=== PATIENT | female | born 1950 | race Hispanic/Latino ===

== ENCOUNTER 2017-05-26 10:01 | Inpatient (IN) | payer MEDICAID ==
[2017-05-26 10:06] VITALS: BMI 44.0
[2017-05-26] MEDS ORDERED: Sodium Chloride 0.9% 500 ML IV STA (10:52)
--- NOTE | 2017-05-26 11:05 | ED PDOC ---
HPI: Abdomen Time Seen by Provider: 05/26/17 10:20 Chief Complaint (Nursing): Abdominal Pain Chief Complaint (Provider): Abd pain History Per: Patient History/Exam Limitations: no limitations Onset/Duration Of Symptoms: Days (sat) Outside of [place] travel?: No Current Symptoms Are (Timing): Still Present Additional Complaint(s): Pt. with abd pain across lower. Started Sat. She also had vaginal bleeding that stopped on Tuesday as well. Abd pain continues today as well so she came to the Er. Pt. gets vaginal bleeding that lasts 3-4 days every month. Had a scraping of uterus in 2014 and stopped vaginal bleeding, but now it is has been back for a while, monthly. Pt. also with nausea, no vomit. No diarrhea. No new food or drinks. No dyspnea, weakness, headaches, dizziness. Gets seizures and takes meds for it (phenobarb and dilantin). No dysuria. Is on oxygen 24hrs a day. Under stress lately from her son dying yesterday, in August. Also gets bad anxiety and panic attacks for which she takes xanax and ativan as needed. Past Medical History Reviewed: Nursing Documentation, Vital Signs Vital Signs: Last Vital Signs Temp 97.8 F 05/26/17 10:06 Pulse 89 05/26/17 11:10 Resp 20 05/26/17 11:10 BP 148/100 H 05/26/17 11:10 Pulse Ox 97 05/26/17 13:20 - Medical History PMH: Anxiety, COPD, Migraine, Seizures Other PMH: vaginal bleeding monthly - Surgical History Surgical History: Appendectomy, Cholecystectomy Other surgeries: uterine scraping - Family History Family History: States: Unknown Family Hx - Social History Current smoker - smoking cessation education provided: No Alcohol: None Drugs: Denies - Home Medications Home Medications: Ambulatory Orders Medication Instructions Recorded Albuterol HFA [Ventolin HFA 90 2 puff IH Q6 PRN 05/26/17 mcg/actuation (8 g)] Albuterol/Ipratropium [Duoneb 3 3 ml IH Q8 PRN 05/26/17 mg/0.5 mg (3 ml) UD] Benzonatate [Tessalon Perle] 200 mg PO Q8 PRN 05/26/17 Digoxin [Lanoxin] 250 mcg PO DAILY 05/26/17 Famotidine [Pepcid] 20 mg PO DAILY PRN 05/26/17 Fluticasone/Salmeterol 500/50 1 puff IH Q12 05/26/17 [Advair Diskus 500/50] LORazepam [Ativan] 1 mg PO Q8 PRN 05/26/17 Naproxen [Naproxen] 375 mg PO Q12 PRN 05/26/17 Omeprazole [Omeprazole] 20 mg PO BID 05/26/17 Ondansetron [Zofran Tab] 4 mg PO DAILY PRN 05/26/17 Phenobarbital [PHENobarbital Tab] 4 tab PO Q12 05/26/17 Phenytoin, Extended [Dilantin] 400 mg PO Q12 05/26/17 SUMAtriptan succinate [Imitrex Tab] 100 mg PO DAILY PRN 05/26/17 Tiotropium [Spiriva] 18 mcg IH DAILY 05/26/17 Venlafaxine HCl [Venlafaxine HCl] 75 mg PO DAILY 05/26/17 oxyCODONE/Acetaminophen [Percocet 1 tab PO Q6 PRN 05/26/17 5/325 mg Tab] - Allergies Allergies/Adverse Reactions: Allergies Allergy/AdvReac Type Severity Reaction Status Date / Time No Known Allergies Allergy Verified 05/26/17 10:14 Review of Systems ROS Statement: Except As Marked, All Systems Reviewed And Found Negative Gastrointestinal: Positive for: Nausea, Abdominal Pain Genitourinary Female: Positive for: Vaginal Bleeding Physical Exam - Reviewed Nursing Documentation Reviewed: Yes Vital Signs Reviewed: Yes - Physical Exam Appears: Positive for: Non-toxic, No Acute Distress Head Exam: Positive for: ATRAUMATIC, NORMAL INSPECTION, NORMOCEPHALIC Skin: Positive for: Normal Color, Warm, DRY Eye Exam: Positive for: EOMI, Normal appearance, PERRL ENT: Positive for: Normal ENT Inspection Neck: Positive for: Normal, Painless ROM, Supple Cardiovascular/Chest: Positive for: Regular Rate, Rhythm Respiratory: Positive for: Decreased Breath Sounds. Negative for: Accessory Muscle Use Gastrointestinal/Abdominal: Positive for: Soft, Tenderness (across lower) Back: Positive for: Normal Inspection. Negative for: L CVA Tenderness, R CVA Tenderness Extremity: Positive for: Normal ROM. Negative for: Tenderness, Pedal Edema Neurologic/Psych: Positive for: Alert, net trainer II-XII, Oriented. Negative for: Motor/Sensory Deficits - Laboratory Results Result Diagrams: 05/26/17 11:00 05/26/17 11:00 Interpretation Of Abn Labs: urine wbc - ECG ECG: Positive for: Interpreted By Me, Viewed By Me ECG Rhythm: Positive for: Normal QRS, Sinus Rhythm, Nonspecific Changes O2 Sat by Pulse Oximetry: 97 Pulse Ox Interpretation: Normal - Radiology X-Ray: Read By Radiologist X-Ray Interpretation: No Acute Disease - CT Scan/US ct Other Rad Studies (CT/US): Read By Radiologist Other Rad Interpretation: no acute - Progress ED Course And Treament: 1107: Stable. Pt. had a seizure for 10 seconds (all extremities shaking). Witnessed by staff writer. Post seizure, pt. had anxiety, but was awake and communicating. 2mg IV ativan given. Daughter at bedside states pt. gets seizures on any stress. Also gets dilaudid for pain. 1320: Stable. AAOx3. Will need admit for pain control and uti tx. Does not meet sepsis criteria. 1400: Spoke with Dr. Velarde. Will admit. Will give orders when pt. reaches floor. Disposition - Clinical Impression Clinical Impression: Abdominal pain, UTI (urinary tract infection), Seizure - Patient ED Disposition Is Patient to be Admitted: Yes Counseled Patient/Family Regarding: Studies Performed, Diagnosis - Disposition Disposition Time: 14:00 Condition: FAIR Forms: [employer] - Pt Status Changed To: Hospital Disposition Of: Observation - POA Present On Arrival: None
[2017-05-26 11:34] LABS: BASO % 0.3 % (0.0-2.0); EOS # 0.2 K/uL (0.0-0.7); EOS % 2.5 % (0.0-4.0); HEMOGLOBIN 15.6 g/dL (12.0-16.0); LYMPH # 2.1 K/uL (1.0-4.3); LYMPH % 21.5 % (20.0-40.0); MEAN CELL VOLUME 85.6 fl (81.0-99.0); MEAN CORPUSCULAR HEMOGLOBIN 29.1 pg (27.0-31.0); MEAN CORPUSCULAR HGB CONC 33.9 g/dL (33.0-37.0); MEAN PLATELET VOLUME 7.8 fl (7.2-11.7); MONO # 0.6 K/uL (0.0-0.8); MONO % 6.3 % (0.0-10.0); NEUT # 6.8 K/uL (1.8-7.0); NEUT % 69.4 % (50.0-75.0); NRBC % 0.1 % (0.0-0.0); RBC 5.36 Mil/uL (3.80-5.20); RED CELL DISTRIBUTION WIDTH 14.2 % (11.5-14.5); WHITE BLOOD COUNT 9.8 K/uL (4.8-10.8)
[2017-05-26 11:37] LABS: SQUAMOUS EPITHIAL 3 /hpf (0-5); URINE BACTERIA OCC (<OCC); URINE BILIRUBIN NEGATIVE (NEGATIVE); URINE BLOOD MODERATE (NEGATIVE); URINE CLARITY CLOUDY (Clear); URINE COLOR YELLOW (YELLOW); URINE GLUCOSE (UA) NEG (Normal); URINE LEUKOCYTE ESTERASE MOD Leu/uL (Negative); URINE PROTEIN NEGATIVE (NEGATIVE); URINE UROBILINOGEN 0.2-1.0 mg/dL (0.2-1.0)
[2017-05-26 11:38] LABS: INR 1.1 (0.9-1.2)
[2017-05-26 11:44] LABS: ALB/GLOB RATIO 1.1 (1.0-2.1); ALBUMIN 4.4 g/dL (3.5-5.0); ALT/SGPT 33 U/L (9-52); AST/SGOT 27 U/L (14-36); BLOOD UREA NITROGEN 13 mg/dl (7-17); GFR AFRICAN-AMERICAN > 60; GFR NON-AFRICAN AMERICAN > 60
[2017-05-26] MEDS ORDERED: Iohexol 300 100 ML IJ ONE (11:55)
[2017-05-26 11:56] LABS: B-TYPE NATRIURETIC PEPTIDE 114 pg/ml (0-900)
[2017-05-26] MEDS ORDERED: Sodium Chloride 0.9% 100 ML ONE (11:56)
--- NOTE | 2017-05-26 12:24 | RAD ---
HISTORY: dyspnea COMPARISON: 01/16/2014 FINDINGS: LUNGS: No active pulmonary disease. PLEURA: No significant pleural effusion identified, no pneumothorax apparent. CARDIOVASCULAR: Normal. OSSEOUS STRUCTURES: No significant abnormalities. VISUALIZED UPPER ABDOMEN: Normal. OTHER FINDINGS: None. IMPRESSION: No active disease.
[2017-05-26] MEDS ORDERED: Ciprofloxacin 400mg/200ml D5W 400 MG/200 ML BAG IV STA (12:42)
[2017-05-26] MEDS ORDERED: Ciprofloxacin 400mg/200ml D5W 400 MG/200 ML BAG IVPB ONE (13:14)
[2017-05-26 13:15] LABS: VENOUS BLOOD GAS BASE EXCESS 0.5 mmol/L (0.0-2.0); VENOUS BLOOD GAS PCO2 52 mmHg (40-60); VENOUS BLOOD GAS PO2 43 mm/Hg (30-55); VENOUS BLOOD PH 7.33 (7.32-7.43)
--- NOTE | 2017-05-26 13:16 | CT ---
PROCEDURE: CT Abdomen and Pelvis with contrast HISTORY: Unspecified abdominal pain COMPARISON: 08/16/2011 CT thorax including upper abdomen TECHNIQUE: Contrast dose: 95 cc Omnipaque 300 Radiation dose: Total exam DLP = 1174.74 mGy-cm. This CT exam was performed using one or more of the following dose reduction techniques: Automated exposure control, adjustment of the mA and/or kV according to patient size, and/or use of iterative reconstruction technique. FINDINGS: LOWER THORAX: Chronic interstitial changes at both bases. Stable hiatal hernia. LIVER: Hepatic steatosis. No focal masses. No intrahepatic bile duct dilatation or perihepatic ascites. GALLBLADDER AND BILE DUCTS: Status post cholecystectomy. No abnormality is seen in the gallbladder fossa. PANCREAS: Unremarkable. No gross lesion or ductal dilatation. SPLEEN: Splenomegaly. Orthogonal measurements 5.8 x 16.6 cm. Accessory splenule also identified. ADRENALS: Unremarkable. No mass. KIDNEYS AND URETERS: Unremarkable. No hydronephrosis. No solid mass. Simple cyst lower pole left kidney 1.2 cm. VASCULATURE: Unremarkable. No aortic aneurysm. BOWEL: Unremarkable. No obstruction. No gross mural thickening. APPENDIX: No abnormalities to suggest acute appendicitis. No right lower quadrant inflammatory processes identified. PERITONEUM: Unremarkable. No free fluid. No free air. LYMPH NODES: Unremarkable. No enlarged lymph nodes. BLADDER: Unremarkable. REPRODUCTIVE: Enlarged, myomatous uterus. BONES: No acute fracture. OTHER FINDINGS: None. IMPRESSION: No acute findings related to/accounting for the clinical presentation. Additional benign and/or incidental findings described above.
[2017-05-26] MEDS ORDERED: Albuterol-Ipratrop 3 mg / 0.5 (3 ml) UD IH PRN (16:32)
[2017-05-26] MEDS ORDERED: Phenytoin 100 mg/4 ml Oral Susp UD PO SCH (17:00)
--- NOTE | 2017-05-26 17:17 | CARD ---
APPROVED REPORT EKG Measurement Heart [id number] IN [id number] <Conclusion> Normal sinus rhythm Normal ECG
[2017-05-26] MEDS: Phenytoin 100 mg/4 ml Oral Susp UD PO SCH (18:38)
[2017-05-26] MEDS: Oxycodone/Acetaminophen 5/325 mg Tab PO PRN (18:42)
[2017-05-26] MEDS: Pantoprazole 40 mg EC Tab PO SCH (18:46)
[2017-05-26] MEDS: Fluticasone-Salmeterol 500-50mcg Diskus IH SCH (21:29)
[2017-05-26] MEDS: Ciprofloxacin 400mg/200ml D5W 400 MG/200 ML BAG IVPB SCH (21:30)
[2017-05-27] MEDS: Oxycodone/Acetaminophen 5/325 mg Tab PO PRN ×2 (00:57→10:02)
[2017-05-27 05:54] LABS: HEMOGLOBIN 13.9 g/dL (12.0-16.0); MEAN CELL VOLUME 86.4 fl (81.0-99.0); MEAN CORPUSCULAR HEMOGLOBIN 29.1 pg (27.0-31.0); MEAN CORPUSCULAR HGB CONC 33.6 g/dL (33.0-37.0); RBC 4.79 Mil/uL (3.80-5.20); RED CELL DISTRIBUTION WIDTH 14.4 % (11.5-14.5); WHITE BLOOD COUNT 6.9 K/uL (4.8-10.8)
[2017-05-27 06:11] LABS: BLOOD UREA NITROGEN 13 mg/dl (7-17); CALCIUM 8.9 mg/dL (8.4-10.2); GFR AFRICAN-AMERICAN > 60; GFR NON-AFRICAN AMERICAN 56
[2017-05-27] MEDS: Phenytoin 100 mg/4 ml Oral Susp UD PO SCH ×2 (09:55→17:27)
[2017-05-27] MEDS: Pantoprazole 40 mg EC Tab PO SCH (09:55)
[2017-05-27] MEDS: Tiotropium 18 mcg Cap For Inhalation IH SCH (09:56)
[2017-05-27] MEDS: Digoxin 250 mcg (0.25 mg) Tab PO SCH (09:56)
[2017-05-27] MEDS: Fluticasone-Salmeterol 500-50mcg Diskus IH SCH ×2 (09:57→21:22)
[2017-05-27] MEDS: Ciprofloxacin 400mg/200ml D5W 400 MG/200 ML BAG IVPB SCH ×2 (09:57→21:22)
--- NOTE | 2017-05-27 11:06 | US ---
HISTORY: postmenopausal bleeding COMPARISON: Transvaginal pelvic ultrasound examination 10/09/2015. TECHNIQUE: Transvaginal pelvic ultrasound was performed with longitudinal and transverse images submitted for interpretation. FINDINGS: UTERUS: Measures 7.6 x 4.4 x 6.5 cm. The uterus is retroverted with multiple fibroids again identified. The dominant lesions are as follows: Pedunculated left fundal fibroid 4.7 x 3.0 x 3.9 cm, stable in the interval. Pedunculated right ovary measuring 2.9 x 2.9 x 2.8 cm not previously data demonstrated, possibly obscured by bowel. Right fundal intramural myoma 2.6 x 2.9 x 2.8 cm, stable in the interval. Left fundal intramural myoma 2.4 x 1.9 x 2.0 cm also unchanged. 1.9 cm intramural left fundal myoma is marginally increased in size in the interval. ENDOMETRIUM: Measures 12.5 mm in diameter. The endometrium is abnormally thickened and remains predominate echogenic without focal definable lesion. Further clinical correlation is recommended. CERVIX: No cervical abnormality identified. RIGHT OVARY: Once again, the right ovary is not identified. No suspicious adnexal mass or fluid collection appreciable. Consider possible right oophorectomy no atrophy is possible. LEFT OVARY: Measures 3.4 x 1.7 x 2.2 cm. No solid mass. A small complex cyst identified with internal debris measuring 1.1 x 0.9 x 1.3 cm. FREE FLUID: No significant free fluid noted. OTHER FINDINGS: None. IMPRESSION: Fibroid uterus again identified with overall measurement of the uterus obtained under transvaginal technique is transabdominal technique was grossly obscured by extensive bowel gas. There is only a marginal difference in increase in size of 1 of the 6 fibroids identified with bilateral pedunculated fibroids appearing the dominant fibroids. Please see measurements and discussion above. Persistent abnormally thickened endometrium now measuring 12.5 mm thickness without focal mass appreciable. Further clinical correlation is advised as underlying pathology is not excluded. Nonvisualized right ovary once again.
--- NOTE | 2017-05-27 11:43 | CP.PCM.PN ---
Subjective - Date & Time of Evaluation Date of Evaluation: 05/27/17 Time of Evaluation: 11:40 - Subjective Subjective: bleeding for past 2 yrs now, pt [facility] pap done and wnl, and mammo and pelvic sono ordered but pt states did not do. She did not return to office for evaluation and poss D/C as advised Pt states continued bleeding on and off from that time Objective - Vital Signs/Intake and Output Vital Signs (last 24 hours): Temp Pulse Resp BP Pulse Ox 97.6 F 79 18 113/80 95 05/27/17 07:46 05/27/17 07:46 05/27/17 07:46 05/27/17 07:46 05/27/17 07:46 Intake and Output: 05/27/17 05/27/17 06:59 18:59 Intake Total 980 Balance 980 - Medications Medications: Current Medications Albuterol/Ipratropium (Duoneb 3 Mg/0.5 Mg (3 Ml) Ud) 3 ml IH RQ8 PRN PRN Reason: Shortness of Breath Digoxin (Lanoxin) 0.25 mg PO DAILY [facility] Last Admin: 05/27/17 09:56 Dose: 0.25 mg Famotidine (Pepcid) 20 mg PO DAILY PRN PRN Reason: Heartburn Last Admin: 05/26/17 18:43 Dose: 20 mg Home Med (Sumatriptan Succinate [Imitrex Tab]) 100 mg PO DAILY PRN PRN Reason: Migraine headache Ciprofloxacin (Cipro 400mg/200ml Dsw) 400 mg in 200 mls @ 200 mls/hr IVPB Q12 DARRIUS PRN Reason: Protocol Last Admin: 05/27/17 09:57 Dose: 200 mls/hr Lorazepam (Ativan) 1 mg PO Q8 PRN PRN Reason: Anxiety Ondansetron HCl (Zofran Tab) 4 mg PO DAILY PRN PRN Reason: Nausea/Vomiting Oxycodone/Acetaminophen (Percocet 5/325 Mg Tab) 1 tab PO Q6 PRN PRN Reason: Pain, severe (8-10) Stop: 05/29/17 16:33 Last Admin: 05/27/17 10:02 Dose: 1 tab Pantoprazole Sodium (Protonix Ec Tab) 40 mg PO DAILY [facility] Last Admin: 05/27/17 09:55 Dose: 40 mg Phenobarbital (Phenobarbital Tab) 60 mg PO DAILY@1300 [facility] Phenobarbital (Phenobarbital Tab) 90 mg PO [facility]HS [facility] Phenytoin (Dilantin) 100 mg PO TID [facility] Last Admin: 05/27/17 09:55 Dose: 100 mg Fluticasone/Salmeterol (Advair Diskus 500/50) 1 puff IH Q12 [facility] Last Admin: 05/27/17 09:57 Dose: 1 puff Tiotropium [place] (Spiriva) 18 mcg IH DAILY [facility] Last Admin: 05/27/17 09:56 Dose: 18 mcg Venlafaxine HCl (Effexor) 75 mg PO DAILY [facility] Last Admin: 05/27/17 09:57 Dose: 75 mg - Labs Labs: 05/27/17 04:29 05/27/17 04:29 PT 12.0 Seconds (9.8-13.1) 05/26/17 11:00 INR 1.1 (0.9-1.2) 05/26/17 11:00 APTT 32.0 Seconds (25.6-37.1) 05/26/17 11:00 - Constitutional Appears: No Acute Distress - Head Exam Head Exam: ATRAUMATIC - Respiratory Exam Respiratory Exam: NORMAL BREATHING PATTERN - GI/Abdominal Exam Additional comments: soft depressible not distended Uterine fundus palpable above sp but NT - Back Exam Additional comments: no calf tenderness - Neurological Exam Neurological Exam: Alert, Awake, Oriented x3 Assessment and Plan - Assessment and Plan (Free Text) Assessment: post menopausal bleeding for past 2 yrs and no apparent follow up Plan: Sono reviewed and showing enlarged uterus with multiple fibroids and a thickened endometrial lining In view of this an endometrial malignancy has to be ruled out Need for D/C discussed with pt Will discussed with PMD and need medical clearence for the procedure Will follow
--- NOTE | 2017-05-27 12:08 | CARD ---
APPROVED REPORT EXAM: Two-dimensional and M-mode echocardiogram with Doppler and color Doppler. Other Information Quality : AverageRhythm : NSR Technically limited study due to copd INDICATION Cardiac Disease: CAD COPD 2D DIMENSIONS IVSd1.21 (0.7-1.1cm)LVDd4.37 (3.9-5.9cm) LVOT Diameter2.43 (1.8-2.4cm)PWd0.88 (0.7-1.1cm) IVSs1.07 (0.8-1.2cm)LVDs4.33 (2.5-4.0cm) FS (%) 0.9 %PWs1.04 (0.8-1.2cm) M-Mode DIMENSIONS Left Atrium (MM)4.17 (2.5-4.0cm)IVSd1.16 (0.7-1.1cm) Aortic Root3.04 (2.2-3.7cm)LVDd4.83 (4.0-5.6cm) Aortic Cusp Exc.1.85 (1.5-2.0cm)PWd1.03 (0.7-1.1cm) IVSs1.36 cmFS (%) 26 % LVDs3.57 (2.0-3.8cm)PWs1.06 cm Mitral Valve MV E Rauywqby64.0cm/sMV DECEL [id number] A Ekbzbqrt11.6cm/s MV [id number]/A ratio1.4MVA (PHT)2.86cm2 TDI Lateral E' Peak V9.70cm/sMedial E' Peak V7.17cm/sE/Lateral E'5.2 E/Medial E'7.0 LEFT VENTRICLE The left ventricle is normal size. There is normal left ventricular wall thickness. The left ventricular function is normal. The left ventricular ejection fraction is within the normal range. The Ejection Fraction is 50-55%. There is normal LV segmental wall motion. The left ventricular diastolic function is normal. RIGHT VENTRICLE The right ventricle is normal size. The right ventricular systolic function is normal. ATRIA The left atrium size is normal. The right atrium size is normal. AORTIC VALVE The aortic valve is normal in structure. No aortic regurgitation is present. There is no aortic valvular stenosis. MITRAL VALVE The mitral valve is normal in structure. There is no mitral valve stenosis. There is no mitral valve regurgitation noted. TRICUSPID VALVE The tricuspid valve is normal in structure. There is no tricuspid valve regurgitation noted. PULMONIC VALVE The pulmonary valve is normal in structure. There is no pulmonic valvular regurgitation. GREAT VESSELS The aortic root is normal in size. The IVC is normal in size and collapses >50% with inspiration. PERICARDIAL EFFUSION The pericardium appears normal. <Conclusion> The left ventricle is normal size. The left ventricular function is normal. The left ventricular ejection fraction is within the normal range. The Ejection Fraction is 50-55%.
--- NOTE | 2017-05-27 13:53 | CP.PCM.HP ---
<Edil Schmitt - Last Filed: 05/27/17 17:54> Meds Home Medications: Home Medication List Medication Instructions Recorded Confirmed Type Ciprofloxacin Lactate 400 mg IV Q12 #4 vial 06/02/17 Rx [Ciprofloxacin] PHENobarbital [PHENobarbital Tab] 60 mg PO DAILY@1300 tab 06/02/17 Rx PHENobarbital [PHENobarbital Tab] 90 mg PO [facility] tab 06/02/17 Rx Allergies/Adverse Reactions: Allergies Allergy/AdvReac Type Severity Reaction Status Date / Time No Known Allergies Allergy Verified 06/02/17 15:39 Results - Vital Signs Recent Vital Signs: Last Vital Signs Temp 98.2 F 05/27/17 15:50 Pulse 75 05/27/17 15:50 Resp 20 05/27/17 15:50 BP 133/91 H 05/27/17 15:50 Pulse Ox 97 05/27/17 15:50 - Labs Result Diagrams: 05/27/17 04:29 05/27/17 04:29 Labs: Laboratory Results - last 24 hr 05/26/17 05/27/17 05/27/17 11:46 04:29 04:29 WBC 6.9 RBC 4.79 Hgb 13.9 Hct 41.4 MCV 86.4 MCH 29.1 MCHC 33.6 RDW 14.4 Plt Count 137 Sodium 144 Potassium 4.1 Chloride 104 Carbon Dioxide 25 Anion Gap 19 BUN 13 Creatinine 1.0 Est GFR ( Amer) > 60 Est GFR (Non-Af Amer) 56 Random Glucose 107 H Calcium 8.9 Phenobarbital 13.6 L <Kana Velarde - Last Filed: 06/04/17 14:24> History of Present Illness - History of Present Illness History of Present Illness: CC: Suprapubic pain. 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 Pain associated to diarrhea/loose stool. Worsening symptoms: Post-menopausal vaginal bleeding x 2 yrs, Hx of seizure Disorder on Dilantin, Phenobarbital ( Pt was witnessed shaking for about 15 seconds as per nurse). Also c/o of severe depression 2nd to loss of her and recent of her son. Aggravated factor: Did not f/u visit with HUMAN RESOURCES PROJECT COORDINATOR since September 2016, after been advices on that date to return to his office for a possible D&C. Morbid Obesity BMI 43.0 Pt denied: Fever, chills, nausea, vomiting, dizziness, CP, palpitation, SOB, cough, sick contact, recent travel out of [place]. EKG: Normal sinus rhythm. CXR: No active disease. Abd/Pelv CT: No acute finding. Abdominal U-S shows: Enlarged uterus with multiple fibroids and thickened endometrial lining. Echo: LVEF 50-55% Present on Admission - Present on Admission Any Indicators Present on Admission: No Review of Systems - Constitutional Constitutional: Other - EENT Eyes: Other (negative) Ears: Decreased Hearing Nose/Mouth/Throat: Other (negative) - Cardiovascular Cardiovascular: Other (negative) - Respiratory Respiratory: Other (negative) - Gastrointestinal Gastrointestinal: Other (negative) - Genitourinary Genitourinary: Other (suprapubic pain) - Reproductive: Female Reproductive:Female: Post Menopausal, Abnormal Vaginal Bleeding, Pelvic Pain - Musculoskeletal Musculoskeletal: Arthralgias, Other (knees pain) - Integumentary Integumentary: Other (negative) - Neurological Neurological: Convulsions - Psychiatric Psychiatric: Anxiety, Depression, Panic Attacks - Endocrine Endocrine: Other (morbid obesity) - Hematologic/Lymphatic Hematologic: Other (negative) Past Patient History - Past Medical History & Family History Past Medical History?: Yes Pertinent Family History: Mother from stomach Ca. - Past Social History Smoking Status: Former Smoker Alcohol: None Drugs: Denies Home Situation {Lives}: Alone - CARDIAC Hx Cardiac Disorders: No - PULMONARY Hx Respiratory Disorders: Yes Hx Chronic Obstructive Pulmonary Disease (COPD): Yes Hx Emphysema: Yes Other/Comment: home o2 - NEUROLOGICAL Hx Neurological Disorder: Yes Hx Migraine: Yes Hx Seizures: Yes - HEENT Hx HEENT Problems: Yes Hx Cataracts: Yes - RENAL Hx Chronic Kidney Disease: No - ENDOCRINE/METABOLIC Hx Endocrine Disorders: No - HEMATOLOGICAL/ONCOLOGICAL Hx Blood Disorders: No - INTEGUMENTARY Hx Dermatological Problems: No - MUSCULOSKELETAL/RHEUMATOLOGICAL Hx Musculoskeletal Disorders: Yes Hx Falls: Yes - GASTROINTESTINAL Hx Gastrointestinal Disorders: Yes Hx Gall Bladder Disease: Yes Hx Irritable Bowel: Yes - GENITOURINARY/GYNECOLOGICAL Hx Genitourinary Disorders: No - PSYCHIATRIC Hx Psychophysiologic Disorder: Yes Hx Anxiety: Yes Hx Depression: Yes Hx Substance Use: No - SURGICAL HISTORY Hx Surgeries: Yes Hx Appendectomy: Yes Hx Cholecystectomy: Yes - ANESTHESIA Hx Anesthesia: Yes Hx Anesthesia Reactions: No Hx Malignant Hyperthermia: No Has any member of the family had a problem w/ anesthesia?: No Physical Exam - Constitutional Appears: Chronically Ill - Head Exam Head Exam: NORMAL INSPECTION - Eye Exam Eye Exam: PERRL - ENT Exam ENT Exam: Normal Exam - Neck Exam Neck exam: Positive for: Normal Inspection - Respiratory Exam Respiratory Exam: Decreased Breath Sounds (at bases) - Cardiovascular Exam Cardiovascular Exam: REGULAR RHYTHM - GI/Abdominal Exam GI & Abdominal Exam: Normal Bowel Sounds, Soft, Tenderness (suprapubic) - Extremities Exam Extremities exam: Positive for: normal inspection - Back Exam Back exam: NORMAL INSPECTION - Neurological Exam Neurological exam: Alert, Oriented x3 - Psychiatric Exam Psychiatric exam: Anxious, Depressed - Skin Skin Exam: Warm Results - Vital Signs Recent Vital Signs: Last Vital Signs Temp 97.8 F 05/27/17 11:49 Pulse 78 05/27/17 11:49 Resp 18 05/27/17 11:49 BP 138/90 05/27/17 11:49 Pulse Ox 93 L 05/27/17 11:49 reviewed J.P. - Labs Result Diagrams: 06/01/17 13:45 06/01/17 13:45 Labs: Laboratory Results - last 24 hr 05/26/17 05/26/17 05/27/17 11:00 11:46 04:29 WBC 6.9 RBC 4.79 Hgb 13.9 Hct 41.4 MCV 86.4 MCH 29.1 MCHC 33.6 RDW 14.4 Plt Count 137 Sodium Potassium Chloride Carbon Dioxide Anion Gap BUN Creatinine Est GFR ( Amer) Est GFR (Non-Af Amer) Random Glucose Calcium Phenytoin 7.6 L Phenobarbital 13.6 L 05/27/17 04:29 WBC RBC Hgb Hct MCV MCH MCHC RDW Plt Count Sodium 144 Potassium 4.1 Chloride 104 Carbon Dioxide 25 Anion Gap 19 BUN 13 Creatinine 1.0 Est GFR ( Amer) > 60 Est GFR (Non-Af Amer) 56 Random Glucose 107 H Calcium 8.9 Phenytoin Phenobarbital reviewed J.P. - EKG Data EKG comments: reviewed J.P. - Impressions Impression: reviewed J.P. - Imaging and Cardiology Chest x-ray Status: Report reviewed by me (JJaceP.) US - abdomen Status: Report reviewed by me (Antonia) CT scan - abdomen Status: Report reviewed by me (Antonia) CT scan - pelvis Status: Report reviewed by me (Antonia) Additional comment: Echo: Reviewed J.P. Transvaginal U-S Reviewed J.P. Assessment & Plan (1) Suprapubic pain, acute Status: Acute Priority: High (2) Post-menopause bleeding Status: Deleted Priority: High (3) UTI (urinary tract infection) Status: Acute Priority: High (4) Seizure Status: Chronic Priority: High (5) COPD (chronic obstructive pulmonary disease) Status: Chronic Priority: Medium - Assessment and Plan (Free Text) Plan: U C-S shows: Grand negative randy. Continue O2 NC, Cipro, Morphine, Dilantin, Phenobarbital, Spiriva, Advair and rest of Tx, PT, OT. HUMAN RESOURCES PROJECT COORDINATOR consult appreciated , Neuro consult. - Date & Time Date: 05/27/17
--- NOTE | 2017-05-27 16:05 | CP.PCM.CON ---
History of Present Illness - History of Present Illness History of Present Illness: 66 yr old woman with pmh of irregular vaginal bleeding, who has a history of epilepsy, maintained on dilantin and phenobarbital with low levels on labs. Miss Rosario has been on this regimen for over 20 years and usually has good control of her seizures. PMH/PSH: as above FH/SH: non contributory All :nkda labs: dilantin 7.6, phenobarbital: 13.6 on exam: Normal neurological exam. Past Patient History - Past Medical History & Family History Past Medical History?: Yes - Past Social History Smoking Status: Former Smoker - CARDIAC Hx Cardiac Disorders: No - PULMONARY Hx Chronic Obstructive Pulmonary Disease (COPD): Yes Hx Emphysema: Yes Other/Comment: home o2 - NEUROLOGICAL Hx Neurological Disorder: Yes Hx Migraine: Yes Hx Seizures: Yes - HEENT Hx HEENT Problems: Yes Hx Cataracts: Yes - RENAL Hx Chronic Kidney Disease: No - ENDOCRINE/METABOLIC Hx Endocrine Disorders: No - HEMATOLOGICAL/ONCOLOGICAL Hx Blood Disorders: No - INTEGUMENTARY Hx Dermatological Problems: No - MUSCULOSKELETAL/RHEUMATOLOGICAL Hx Musculoskeletal Disorders: No Hx Falls: Yes - GASTROINTESTINAL Hx Gastrointestinal Disorders: Yes Hx Gall Bladder Disease: Yes Hx Irritable Bowel: Yes - GENITOURINARY/GYNECOLOGICAL Hx Genitourinary Disorders: No - PSYCHIATRIC Hx Anxiety: Yes Hx Substance Use: No - SURGICAL HISTORY Hx Surgeries: Yes Hx Appendectomy: Yes Hx Cholecystectomy: Yes - ANESTHESIA Hx Anesthesia: Yes Hx Anesthesia Reactions: No Hx Malignant Hyperthermia: No Has any member of the family had a problem w/ anesthesia?: No Meds Allergies/Adverse Reactions: Allergies Allergy/AdvReac Type Severity Reaction Status Date / Time No Known Allergies Allergy Verified 05/26/17 10:14 - Medications Medications: Current Medications Albuterol/Ipratropium (Duoneb 3 Mg/0.5 Mg (3 Ml) Ud) 3 ml IH RQ8 PRN PRN Reason: Shortness of Breath Digoxin (Lanoxin) 0.25 mg PO DAILY [facility] Last Admin: 05/27/17 09:56 Dose: 0.25 mg Famotidine (Pepcid) 20 mg PO DAILY PRN PRN Reason: Heartburn Last Admin: 05/27/17 13:24 Dose: 20 mg Ciprofloxacin (Cipro 400mg/200ml Dsw) 400 mg in 200 mls @ 200 mls/hr IVPB Q12 [facility] PRN Reason: Protocol Last Admin: 05/27/17 09:57 Dose: 200 mls/hr Lorazepam (Ativan) 1 mg PO Q8 PRN PRN Reason: Anxiety Ondansetron HCl (Zofran Tab) 4 mg PO DAILY PRN PRN Reason: Nausea/Vomiting Last Admin: 05/27/17 11:39 Dose: 4 mg Oxycodone/Acetaminophen (Percocet 5/325 Mg Tab) 1 tab PO Q6 PRN PRN Reason: Pain, severe (8-10) Stop: 05/29/17 16:33 Last Admin: 05/27/17 10:02 Dose: 1 tab Pantoprazole Sodium (Protonix Ec Tab) 40 mg PO DAILY [facility] Last Admin: 05/27/17 09:55 Dose: 40 mg Phenobarbital (Phenobarbital Tab) 60 mg PO DAILY@1300 [facility] Last Admin: 05/27/17 13:37 Dose: Not Given Phenobarbital (Phenobarbital Tab) 90 mg PO AMHS [facility] Last Admin: 05/27/17 12:26 Dose: Not Given Phenytoin (Dilantin) 300 mg PO BID [facility] Phenytoin Sodium (Dilantin) 200 mg PO DAILY@1230 [facility] Last Admin: 05/27/17 13:33 Dose: 200 mg Fluticasone/Salmeterol (Advair Diskus 500/50) 1 puff IH Q12 [facility] Last Admin: 05/27/17 09:57 Dose: 1 puff Tiotropium [place] (Spiriva) 18 mcg IH DAILY [facility] Last Admin: 05/27/17 09:56 Dose: 18 mcg Venlafaxine HCl (Effexor) 75 mg PO DAILY [facility] Last Admin: 05/27/17 09:57 Dose: 75 mg Results - Vital Signs Recent Vital Signs: Last Vital Signs Temp 98.2 F 05/27/17 15:50 Pulse 75 05/27/17 15:50 Resp 20 05/27/17 15:50 BP 133/91 H 05/27/17 15:50 Pulse Ox 97 05/27/17 15:50 - Labs Result Diagrams: 05/27/17 04:29 05/27/17 04:29 Labs: Laboratory Results - last 24 hr 05/26/17 05/27/17 05/27/17 11:46 04:29 04:29 WBC 6.9 RBC 4.79 Hgb 13.9 Hct 41.4 MCV 86.4 MCH 29.1 MCHC 33.6 RDW 14.4 Plt Count 137 Sodium 144 Potassium 4.1 Chloride 104 Carbon Dioxide 25 Anion Gap 19 BUN 13 Creatinine 1.0 Est GFR ( Amer) > 60 Est GFR (Non-Af Amer) 56 Random Glucose 107 H Calcium 8.9 Phenobarbital 13.6 L Assessment & Plan - Assessment and Plan (Free Text) Assessment: 66 yr old woman with chronic medical issues, who is here for evluation of breakthrough seizure. Her aed levels are low and I will increase her dilantin and phenobarbital and observe. Plan: 1. aed levels. thank you for this consult. We will follow Dr Schmitt
[2017-05-28] MEDS: Fluticasone-Salmeterol 500-50mcg Diskus IH SCH ×2 (09:53→21:23)
[2017-05-28] MEDS: Phenytoin 100 mg/4 ml Oral Susp UD PO SCH ×2 (09:54→17:27)
[2017-05-28] MEDS: Digoxin 250 mcg (0.25 mg) Tab PO SCH (09:54)
[2017-05-28] MEDS: Pantoprazole 40 mg EC Tab PO SCH (09:55)
[2017-05-28] MEDS: Tiotropium 18 mcg Cap For Inhalation IH SCH (09:55)
[2017-05-28] MEDS: Ciprofloxacin 400mg/200ml D5W 400 MG/200 ML BAG IVPB SCH ×2 (09:58→21:24)
[2017-05-28] MEDS: Alum-Mag Hydrox-Simethicone Susp (30 mL) PO PRN (19:01)
--- NOTE | 2017-05-28 19:08 | CP.PCM.PN ---
Subjective - Date & Time of Evaluation Date of Evaluation: 05/28/17 Time of Evaluation: 14:10 - Subjective Subjective: F/U Vaginal bleeding Objective - Vital Signs/Intake and Output Vital Signs (last 24 hours): Temp Pulse Resp BP Pulse Ox 98.2 F 69 20 122/82 95 05/28/17 15:41 05/28/17 15:41 05/28/17 15:41 05/28/17 15:41 05/28/17 15:41 - Medications Medications: Current Medications Al Hydrox/Mg Hydrox/Simethicone (Maalox Plus 30 Ml) 30 ml PO Q6 PRN PRN Reason: Indigestion / Heartburn Last Admin: 05/28/17 19:01 Dose: 30 ml Albuterol/Ipratropium (Duoneb 3 Mg/0.5 Mg (3 Ml) Ud) 3 ml IH RQ8 PRN PRN Reason: Shortness of Breath Last Admin: 05/28/17 15:19 Dose: 3 ml Digoxin (Lanoxin) 0.25 mg PO DAILY [facility] Last Admin: 05/28/17 09:54 Dose: 0.25 mg Famotidine (Pepcid) 20 mg PO DAILY PRN PRN Reason: Heartburn Last Admin: 05/28/17 09:53 Dose: 20 mg Ciprofloxacin (Cipro 400mg/200ml Dsw) 400 mg in 200 mls @ 200 mls/hr IVPB Q12 [facility] PRN Reason: Protocol Last Admin: 05/28/17 09:58 Dose: 200 mls/hr Lorazepam (Ativan) 1 mg PO Q8 PRN PRN Reason: Anxiety Morphine Sulfate (Morphine) 2 mg IVP Q4 PRN PRN Reason: Pain, severe (8-10) Last Admin: 05/27/17 22:58 Dose: 2 mg Ondansetron HCl (Zofran Tab) 4 mg PO DAILY PRN PRN Reason: Nausea/Vomiting Last Admin: 05/28/17 11:48 Dose: 4 mg Pantoprazole Sodium (Protonix Ec Tab) 40 mg PO DAILY [facility] Last Admin: 05/28/17 09:55 Dose: 40 mg Phenobarbital (Phenobarbital Tab) 60 mg PO DAILY@1300 [facility] Last Admin: 05/28/17 13:12 Dose: 60 mg Phenobarbital (Phenobarbital Tab) 90 mg PO AMHS [facility] Last Admin: 05/28/17 09:58 Dose: 90 mg Phenytoin (Dilantin) 300 mg PO BID [facility] Last Admin: 05/28/17 17:27 Dose: 300 mg Phenytoin Sodium (Dilantin) 200 mg PO DAILY@1230 [facility] Last Admin: 05/28/17 13:13 Dose: 200 mg Fluticasone/Salmeterol (Advair Diskus 500/50) 1 puff IH Q12 [facility] Last Admin: 05/28/17 09:53 Dose: 1 puff Tiotropium [place] (Spiriva) 18 mcg IH DAILY [facility] Last Admin: 05/28/17 09:55 Dose: 18 mcg Venlafaxine HCl (Effexor) 75 mg PO DAILY [facility] Last Admin: 05/28/17 09:54 Dose: 75 mg - Labs Labs: 05/27/17 04:29 05/27/17 04:29 PT 12.0 Seconds (9.8-13.1) 05/26/17 11:00 INR 1.1 (0.9-1.2) 05/26/17 11:00 APTT 32.0 Seconds (25.6-37.1) 05/26/17 11:00 - Constitutional Appears: Chronically Ill - Head Exam Head Exam: NORMAL INSPECTION - Eye Exam Eye Exam: PERRL - ENT Exam ENT Exam: Normal Exam - Neck Exam Neck Exam: Normal Inspection - Respiratory Exam Respiratory Exam: Decreased Breath Sounds (at bases) - Cardiovascular Exam Cardiovascular Exam: REGULAR RHYTHM - GI/Abdominal Exam GI & Abdominal Exam: Soft, Tenderness (suprapubic), Normal Bowel Sounds - Extremities Exam Extremities Exam: Normal Inspection - Back Exam Back Exam: NORMAL INSPECTION - Neurological Exam Neurological Exam: Alert, Oriented x3 Additional comments: No focal motor/sensory deficit. - Psychiatric Exam Psychiatric exam: Anxious, Depressed - Skin Skin Exam: Warm Assessment and Plan (1) Suprapubic pain, acute Status: Acute (2) Post-menopause bleeding Status: Chronic (3) UTI (urinary tract infection) Status: Acute (4) Seizure Status: Chronic (5) COPD (chronic obstructive pulmonary disease) Status: Acute
--- NOTE | 2017-05-29 09:42 | CP.PCM.PN ---
Subjective - Date & Time of Evaluation Date of Evaluation: 05/29/17 Time of Evaluation: 09:40 - Subjective Subjective: Ms. Rosario was seen and examined at the bedside. She is alert, oriented. She denies any headache, dizziness, lightheadedness. She further states of feeling sad due to the recent passing of her son this month. She is able to consume all her breakfast tray. There was no untoward events overnight. Objective - Vital Signs/Intake and Output Vital Signs (last 24 hours): Temp Pulse Resp BP Pulse Ox 97.8 F 76 18 98/63 L 96 05/29/17 08:09 05/29/17 08:09 05/29/17 08:09 05/29/17 08:09 05/29/17 08:09 - Medications Medications: Current Medications Al Hydrox/Mg Hydrox/Simethicone (Maalox Plus 30 Ml) 30 ml PO Q6 PRN PRN Reason: Indigestion / Heartburn Last Admin: 05/28/17 19:01 Dose: 30 ml Albuterol/Ipratropium (Duoneb 3 Mg/0.5 Mg (3 Ml) Ud) 3 ml IH RQ8 PRN PRN Reason: Shortness of Breath Last Admin: 05/28/17 15:19 Dose: 3 ml Digoxin (Lanoxin) 0.25 mg PO DAILY [facility] Last Admin: 05/28/17 09:54 Dose: 0.25 mg Famotidine (Pepcid) 20 mg PO DAILY PRN PRN Reason: Heartburn Last Admin: 05/28/17 09:53 Dose: 20 mg Ciprofloxacin (Cipro 400mg/200ml Dsw) 400 mg in 200 mls @ 200 mls/hr IVPB Q12 [facility] PRN Reason: Protocol Last Admin: 05/28/17 21:24 Dose: 200 mls/hr Lorazepam (Ativan) 1 mg PO Q8 PRN PRN Reason: Anxiety Last Admin: 05/28/17 21:23 Dose: 1 mg Morphine Sulfate (Morphine) 2 mg IVP Q4 PRN PRN Reason: Pain, severe (8-10) Last Admin: 05/27/17 22:58 Dose: 2 mg Ondansetron HCl (Zofran Tab) 4 mg PO DAILY PRN PRN Reason: Nausea/Vomiting Last Admin: 04/21/18 11:48 Dose: 4 mg Pantoprazole Sodium (Protonix Ec Tab) 40 mg PO DAILY [facility] Last Admin: 05/28/17 09:55 Dose: 40 mg Phenobarbital (Phenobarbital Tab) 60 mg PO DAILY@1300 [facility] Last Admin: 05/28/17 13:12 Dose: 60 mg Phenobarbital (Phenobarbital Tab) 90 mg PO AMHS [facility] Last Admin: 05/28/17 21:27 Dose: 90 mg Phenytoin (Dilantin) 300 mg PO BID [facility] Last Admin: 05/28/17 17:27 Dose: 300 mg Phenytoin Sodium (Dilantin) 200 mg PO DAILY@1230 [facility] Last Admin: 05/28/17 13:13 Dose: 200 mg Fluticasone/Salmeterol (Advair Diskus 500/50) 1 puff IH Q12 [facility] Last Admin: 05/28/17 21:23 Dose: 1 puff Tiotropium [place] (Spiriva) 18 mcg IH DAILY [facility] Last Admin: 05/28/17 09:55 Dose: 18 mcg Venlafaxine HCl (Effexor) 75 mg PO DAILY [facility] Last Admin: 05/28/17 09:54 Dose: 75 mg - Labs Labs: 05/27/17 04:29 05/27/17 04:29 PT 12.0 Seconds (9.8-13.1) 05/26/17 11:00 INR 1.1 (0.9-1.2) 05/26/17 11:00 APTT 32.0 Seconds (25.6-37.1) 05/26/17 11:00 - Constitutional Appears: No Acute Distress - Head Exam Head Exam: NORMAL INSPECTION - Neurological Exam Neurological Exam: Alert, Awake, Normal Gait, Oriented x3 Neuro motor strength exam: Left Upper Extremity: 4, Right Upper Extremity: 4, Left Lower Extremity: 4, Right Lower Extremity: 4 Additional comments: She is alert, oriented, follows commands. Sensation is intact. - Psychiatric Exam Psychiatric exam: Anxious Assessment and Plan (1) Seizure Assessment & Plan: Case discussed with Dr. Schmitt, continue all current medical regimen including her AED. Recommend repeat dilantin and phenobarbital levels. Recommend psychiatry consult for her mood/ depression. Status: Chronic
[2017-05-29] MEDS: Fluticasone-Salmeterol 500-50mcg Diskus IH SCH ×2 (10:11→21:48)
[2017-05-29] MEDS: Phenytoin 100 mg/4 ml Oral Susp UD PO SCH ×2 (10:13→18:15)
[2017-05-29] MEDS: Tiotropium 18 mcg Cap For Inhalation IH SCH (10:21)
[2017-05-29] MEDS: Digoxin 250 mcg (0.25 mg) Tab PO SCH (10:21)
[2017-05-29] MEDS: Pantoprazole 40 mg EC Tab PO SCH (10:23)
[2017-05-29] MEDS: Ciprofloxacin 400mg/200ml D5W 400 MG/200 ML BAG IVPB SCH ×2 (10:24→21:47)
--- NOTE | 2017-05-29 14:41 | CP.PCM.PN ---
Subjective - Date & Time of Evaluation Date of Evaluation: 05/29/17 - Subjective Subjective: F/U Vaginal bleeding calm , complaining of suprapubic pain Objective - Vital Signs/Intake and Output Vital Signs (last 24 hours): Temp Pulse Resp BP Pulse Ox 97.7 F 77 18 134/80 96 05/29/17 12:15 05/29/17 12:15 05/29/17 12:15 05/29/17 12:15 05/29/17 12:15 - Medications Medications: Current Medications Al Hydrox/Mg Hydrox/Simethicone (Maalox Plus 30 Ml) 30 ml PO Q6 PRN PRN Reason: Indigestion / Heartburn Last Admin: 05/28/17 19:01 Dose: 30 ml Albuterol/Ipratropium (Duoneb 3 Mg/0.5 Mg (3 Ml) Ud) 3 ml IH RQ8 PRN PRN Reason: Shortness of Breath Last Admin: 05/28/17 15:19 Dose: 3 ml Digoxin (Lanoxin) 0.25 mg PO DAILY [facility] Last Admin: 05/29/17 10:21 Dose: 0.25 mg Famotidine (Pepcid) 20 mg PO DAILY PRN PRN Reason: Heartburn Last Admin: 05/29/17 10:22 Dose: 20 mg Ciprofloxacin (Cipro 400mg/200ml Dsw) 400 mg in 200 mls @ 200 mls/hr IVPB Q12 [facility] PRN Reason: Protocol Last Admin: 05/29/17 10:24 Dose: 200 mls/hr Lorazepam (Ativan) 1 mg PO Q8 PRN PRN Reason: Anxiety Last Admin: 05/28/17 21:23 Dose: 1 mg Morphine Sulfate (Morphine) 2 mg IVP Q4 PRN PRN Reason: Pain, severe (8-10) Last Admin: 05/27/17 22:58 Dose: 2 mg Ondansetron HCl (Zofran Tab) 4 mg PO DAILY PRN PRN Reason: Nausea/Vomiting Last Admin: 05/29/17 10:30 Dose: 4 mg Pantoprazole Sodium (Protonix Ec Tab) 40 mg PO DAILY [facility] Last Admin: 05/29/17 10:23 Dose: 40 mg Phenobarbital (Phenobarbital Tab) 60 mg PO DAILY@1300 [facility] Last Admin: 05/28/17 13:12 Dose: 60 mg Phenobarbital (Phenobarbital Tab) 90 mg PO AMHS [facility] Last Admin: 05/29/17 10:46 Dose: 90 mg Phenytoin (Dilantin) 300 mg PO BID [facility] Last Admin: 05/29/17 10:13 Dose: 300 mg Phenytoin Sodium (Dilantin) 200 mg PO DAILY@1230 [facility] Last Admin: 05/28/17 13:13 Dose: 200 mg Fluticasone/Salmeterol (Advair Diskus 500/50) 1 puff IH Q12 [facility] Last Admin: 05/29/17 10:11 Dose: 1 puff Tiotropium [place] (Spiriva) 18 mcg IH DAILY [facility] Last Admin: 05/29/17 10:21 Dose: 18 mcg Venlafaxine HCl (Effexor) 75 mg PO DAILY [facility] Last Admin: 05/29/17 10:20 Dose: 75 mg - Labs Labs: 05/27/17 04:29 05/27/17 04:29 PT 12.0 Seconds (9.8-13.1) 05/26/17 11:00 INR 1.1 (0.9-1.2) 05/26/17 11:00 APTT 32.0 Seconds (25.6-37.1) 05/26/17 11:00 - Constitutional Appears: Chronically Ill - Head Exam Head Exam: NORMAL INSPECTION - Eye Exam Eye Exam: PERRL - ENT Exam ENT Exam: Normal Exam - Neck Exam Neck Exam: Normal Inspection - Respiratory Exam Respiratory Exam: Decreased Breath Sounds (at bases) - Cardiovascular Exam Cardiovascular Exam: REGULAR RHYTHM - GI/Abdominal Exam GI & Abdominal Exam: Tenderness (suprapubic) - Back Exam Back Exam: tenderness - Neurological Exam Neurological Exam: Alert, CN II-XII Intact, Oriented x3 Additional comments: no focal motor/sensory deficit - Psychiatric Exam Psychiatric exam: Anxious - Skin Skin Exam: Warm Assessment and Plan (1) Suprapubic pain, acute Status: Acute (2) Post-menopause bleeding Status: Chronic (3) UTI (urinary tract infection) Assessment & Plan: E Coli Status: Acute (4) Seizure Status: Chronic (5) COPD (chronic obstructive pulmonary disease) Status: Chronic - Assessment and Plan (Free Text) Plan: Continue Dilantin Phenobarbital , DuoNeb ,Cipro , Morphine and rest of the treatment. For D&C on Tuesday , Cardiology consult for final medical clearance
[2017-05-30] MEDS: Fluticasone-Salmeterol 500-50mcg Diskus IH SCH ×2 (09:11→21:05)
[2017-05-30] MEDS: Digoxin 250 mcg (0.25 mg) Tab PO SCH (09:12)
[2017-05-30] MEDS: Phenytoin 100 mg/4 ml Oral Susp UD PO SCH ×2 (09:12→17:39)
[2017-05-30] MEDS: Pantoprazole 40 mg EC Tab PO SCH (09:12)
[2017-05-30] MEDS: Tiotropium 18 mcg Cap For Inhalation IH SCH (09:13)
--- NOTE | 2017-05-30 09:21 | CP.PCM.CON ---
History of Present Illness - History of Present Illness History of Present Illness: This 66-year-old female who has a history of seizure disorder as well as bronchospastic disease for which she takes multiple broncho-dilators and multiple analgesics for chronic pain, is being evaluated for a D&C. This consultation was requested prior to the procedure. The patient denies a prior history of hypertension or diabetes or ever having experienced effort related chest pain. The patient goes up and down a flight of stairs at home without any difficulty for number of years. She denied any history of smoking. She has had intermittent pedal edema and also reports that she has had severe varicosities of lower extremities for number of years. She gives history of having had "palpitations" more than 10 years back and was started on a daily dose of digoxin which she has taken ever since and has not experienced any further palpitations. The precise nature of her arrhythmia remains uncertain. The patient has no symptoms of congestive cardiac failure. Physical examination shows a middle aged overweight female who is sitting up in a chair and breathes comfortably at 14-16 breaths per minute. Her telemetry shows steady sinus rhythm with physiological heart rates. Her blood pressure was 124/74 mmHg. Her jugular venous pressure was not elevated and there was no edema over her lower extremities. There were significant varicosities over her lower extremities. Her pedal pulses are well felt. There were no carotid bruits. Estimated blood wall and the nailbeds were pink. There was no central or peripheral cyanosis. There was no clubbing. [place] was not palpable the first and second heart sounds were normal. There was no murmur or gallop there were no rales. Her electro-cardiogram showed sinus rhythm with a normal EKG pattern. Her echocardiogram showed a normal-sized left ventricle with normal left ventricular systolic function and no significant valvulopathy. Her lab data was noted. Impression: Seizure disorder. ? Bronchospastic disease. The patient is medically stable to proceed with the planned D & C. Past Patient History - Past Medical History & Family History Past Medical History?: Yes - Past Social History Smoking Status: Former Smoker Alcohol: None Drugs: Denies Home Situation {Lives}: Alone - CARDIAC Hx Cardiac Disorders: No - PULMONARY Hx Respiratory Disorders: Yes Hx Chronic Obstructive Pulmonary Disease (COPD): Yes Hx Emphysema: Yes Other/Comment: home o2 - NEUROLOGICAL Hx Neurological Disorder: Yes Hx Migraine: Yes Hx Seizures: Yes - HEENT Hx HEENT Problems: Yes Hx Cataracts: Yes - RENAL Hx Chronic Kidney Disease: No - ENDOCRINE/METABOLIC Hx Endocrine Disorders: No - HEMATOLOGICAL/ONCOLOGICAL Hx Blood Disorders: No - INTEGUMENTARY Hx Dermatological Problems: No - MUSCULOSKELETAL/RHEUMATOLOGICAL Hx Musculoskeletal Disorders: Yes Hx Falls: Yes - GASTROINTESTINAL Hx Gastrointestinal Disorders: Yes Hx Gall Bladder Disease: Yes Hx Irritable Bowel: Yes - GENITOURINARY/GYNECOLOGICAL Hx Genitourinary Disorders: No - PSYCHIATRIC Hx Psychophysiologic Disorder: Yes Hx Anxiety: Yes Hx Depression: Yes Hx Substance Use: No - SURGICAL HISTORY Hx Surgeries: Yes Hx Appendectomy: Yes Hx Cholecystectomy: Yes - ANESTHESIA Hx Anesthesia: Yes Hx Anesthesia Reactions: No Hx Malignant Hyperthermia: No Has any member of the family had a problem w/ anesthesia?: No Meds Allergies/Adverse Reactions: Allergies Allergy/AdvReac Type Severity Reaction Status Date / Time No Known Allergies Allergy Verified 05/26/17 10:14 - Medications Medications: Current Medications Acetaminophen (Tylenol 325mg Tab) 650 mg PO Q6 PRN PRN Reason: Pain, Mild (1-3) Last Admin: 05/29/17 15:23 Dose: 650 mg Al Hydrox/Mg Hydrox/Simethicone (Maalox Plus 30 Ml) 30 ml PO Q6 PRN PRN Reason: Indigestion / Heartburn Last Admin: 05/28/17 19:01 Dose: 30 ml Albuterol/Ipratropium (Duoneb 3 Mg/0.5 Mg (3 Ml) Ud) 3 ml IH RQ8 PRN PRN Reason: Shortness of Breath Last Admin: 05/28/17 15:19 Dose: 3 ml Digoxin (Lanoxin) 0.25 mg PO DAILY [facility] Last Admin: 05/29/17 10:21 Dose: 0.25 mg Docusate Sodium (Colace) 100 mg PO BID [facility] Last Admin: 05/29/17 18:15 Dose: 100 mg Famotidine (Pepcid) 20 mg PO DAILY PRN PRN Reason: Heartburn Last Admin: 05/29/17 10:22 Dose: 20 mg Ciprofloxacin (Cipro 400mg/200ml Dsw) 400 mg in 200 mls @ 200 mls/hr IVPB Q12 [facility] PRN Reason: Protocol Last Admin: 05/29/17 21:47 Dose: 200 mls/hr Lactulose (Enulose) 20 gm PO DAILY PRN PRN Reason: Constipation Lorazepam (Ativan) 1 mg PO Q8 PRN PRN Reason: Anxiety Morphine Sulfate (Morphine) 2 mg IVP Q4 PRN PRN Reason: Pain, severe (8-10) Last Admin: 05/30/17 00:05 Dose: 2 mg Ondansetron HCl (Zofran Tab) 4 mg PO DAILY PRN PRN Reason: Nausea/Vomiting Last Admin: 05/29/17 10:30 Dose: 4 mg Pantoprazole Sodium (Protonix Ec Tab) 40 mg PO DAILY [facility] Last Admin: 05/29/17 10:23 Dose: 40 mg Phenobarbital (Phenobarbital Tab) 60 mg PO DAILY@1300 [facility] Last Admin: 05/29/17 14:51 Dose: 60 mg Phenobarbital (Phenobarbital Tab) 90 mg PO AMHS [facility] Last Admin: 05/29/17 21:50 Dose: 90 mg Phenytoin (Dilantin) 300 mg PO BID [facility] Last Admin: 05/29/17 18:15 Dose: 300 mg Phenytoin Sodium (Dilantin) 200 mg PO DAILY@1230 [facility] Last Admin: 05/29/17 14:51 Dose: 200 mg Fluticasone/Salmeterol (Advair Diskus 500/50) 1 puff IH Q12 [facility] Last Admin: 05/29/17 21:48 Dose: 1 puff Tiotropium [place] (Spiriva) 18 mcg IH DAILY [facility] Last Admin: 05/29/17 10:21 Dose: 18 mcg Venlafaxine HCl (Effexor) 75 mg PO DAILY [facility] Last Admin: 05/29/17 10:20 Dose: 75 mg Results - Vital Signs Recent Vital Signs: Last Vital Signs Temp 97.8 F 05/30/17 08:00 Pulse 76 05/30/17 08:00 Resp 18 05/30/17 08:00 BP 120/86 05/30/17 08:00 Pulse Ox 95 05/30/17 08:00 - Labs Result Diagrams: 05/27/17 04:29 05/27/17 04:29 Labs: Laboratory Results - last 24 hr 05/30/17 04:25 Phenytoin 15.8
[2017-05-30] MEDS: Ciprofloxacin 400mg/200ml D5W 400 MG/200 ML BAG IVPB SCH ×2 (09:22→21:04)
--- NOTE | 2017-05-30 10:46 | CP.PCM.PN ---
Subjective - Date & Time of Evaluation Date of Evaluation: 05/30/17 Time of Evaluation: 10:46 - Subjective Subjective: Ms. Rosario was seen and examined at the bedside. She is alert, oriented. She denies any dizziness, lightheadedness. She complains of mild frontal headache, non-radiating, pain scale 1/10. She further states of feeling sad due to the recent passing of her son this month. She is able to consume all her breakfast tray.Dilantin 15.8. There was no untoward events overnight. Objective - Vital Signs/Intake and Output Vital Signs (last 24 hours): Temp Pulse Resp BP Pulse Ox 97.8 F 76 18 120/86 95 05/30/17 08:00 05/30/17 08:00 05/30/17 08:00 05/30/17 08:00 05/30/17 08:00 - Medications Medications: Current Medications Acetaminophen (Tylenol 325mg Tab) 650 mg PO Q6 PRN PRN Reason: Pain, Mild (1-3) Last Admin: 05/30/17 09:26 Dose: 650 mg Al Hydrox/Mg Hydrox/Simethicone (Maalox Plus 30 Ml) 30 ml PO Q6 PRN PRN Reason: Indigestion / Heartburn Last Admin: 05/28/17 19:01 Dose: 30 ml Albuterol/Ipratropium (Duoneb 3 Mg/0.5 Mg (3 Ml) Ud) 3 ml IH RQ8 PRN PRN Reason: Shortness of Breath Last Admin: 05/28/17 15:19 Dose: 3 ml Digoxin (Lanoxin) 0.25 mg PO DAILY [facility] Last Admin: 05/30/17 09:12 Dose: 0.25 mg Docusate Sodium (Colace) 100 mg PO BID [facility] Last Admin: 05/30/17 09:12 Dose: 100 mg Famotidine (Pepcid) 20 mg PO DAILY PRN PRN Reason: Heartburn Last Admin: 05/30/17 09:13 Dose: 20 mg Ciprofloxacin (Cipro 400mg/200ml Dsw) 400 mg in 200 mls @ 200 mls/hr IVPB Q12 [facility] PRN Reason: Protocol Last Admin: 05/30/17 09:22 Dose: 200 mls/hr Lactulose (Enulose) 20 gm PO DAILY PRN PRN Reason: Constipation Lorazepam (Ativan) 1 mg PO Q8 PRN PRN Reason: Anxiety Morphine Sulfate (Morphine) 2 mg IVP Q4 PRN PRN Reason: Pain, severe (8-10) Last Admin: 05/30/17 00:05 Dose: 2 mg Ondansetron HCl (Zofran Tab) 4 mg PO DAILY PRN PRN Reason: Nausea/Vomiting Last Admin: 05/29/17 10:30 Dose: 4 mg Pantoprazole Sodium (Protonix Ec Tab) 40 mg PO DAILY [facility] Last Admin: 05/30/17 09:12 Dose: 40 mg Phenobarbital (Phenobarbital Tab) 60 mg PO DAILY@1300 [facility] Last Admin: 05/29/17 14:51 Dose: 60 mg Phenobarbital (Phenobarbital Tab) 90 mg PO AMHS [facility] Last Admin: 05/30/17 09:25 Dose: 90 mg Phenytoin (Dilantin) 300 mg PO BID [facility] Last Admin: 05/30/17 09:12 Dose: 300 mg Phenytoin Sodium (Dilantin) 200 mg PO DAILY@1230 [facility] Last Admin: 05/29/17 14:51 Dose: 200 mg Fluticasone/Salmeterol (Advair Diskus 500/50) 1 puff IH Q12 [facility] Last Admin: 05/30/17 09:11 Dose: 1 puff Tiotropium [place] (Spiriva) 18 mcg IH DAILY [facility] Last Admin: 05/30/17 09:13 Dose: 18 mcg Venlafaxine HCl (Effexor) 75 mg PO DAILY [facility] Last Admin: 05/30/17 09:13 Dose: 75 mg - Labs Labs: 05/27/17 04:29 05/27/17 04:29 PT 12.0 Seconds (9.8-13.1) 05/26/17 11:00 INR 1.1 (0.9-1.2) 05/26/17 11:00 APTT 32.0 Seconds (25.6-37.1) 05/26/17 11:00 - Constitutional Appears: No Acute Distress - Head Exam Head Exam: NORMAL INSPECTION - Neurological Exam Neurological Exam: Alert, Awake, Oriented x3 Neuro motor strength exam: Left Upper Extremity: 5, Right Upper Extremity: 5, Left Lower Extremity: 5, Right Lower Extremity: 5 Additional comments: Neurological examination unchanged from previous examination. Assessment and Plan (1) Seizure Assessment & Plan: Case discussed with Dr. Olivares, continue all current medical regimen including her AED. Recommend psychiatry consult for her mood/ depression. Status: Chronic
[2017-05-30 14:10] LABS: HEMOGLOBIN 14.7 g/dL (12.0-16.0); MEAN CELL VOLUME 85.4 fl (81.0-99.0); MEAN CORPUSCULAR HEMOGLOBIN 29.1 pg (27.0-31.0); MEAN CORPUSCULAR HGB CONC 34.1 g/dL (33.0-37.0); RBC 5.05 Mil/uL (3.80-5.20); WHITE BLOOD COUNT 7.9 K/uL (4.8-10.8)
[2017-05-30 14:17] LABS: ALB/GLOB RATIO 1.2 (1.0-2.1); ALBUMIN 4.3 g/dL (3.5-5.0); ALT/SGPT 56 U/L (9-52); AST/SGOT 52 U/L (14-36); BLOOD UREA NITROGEN 17 mg/dl (7-17); CALCIUM 9.1 mg/dL (8.4-10.2); GFR AFRICAN-AMERICAN > 60; GFR NON-AFRICAN AMERICAN 56
[2017-05-30 14:20] LABS: INR 1.2 (0.9-1.2); PROTHROMBIN TIME 13.3 Seconds (9.8-13.1)
--- NOTE | 2017-05-30 16:24 | CP.PCM.PN ---
Subjective - Date & Time of Evaluation Date of Evaluation: 05/30/17 Time of Evaluation: 10:50 - Subjective Subjective: F/U Vaginal bleeding Complains of suprapubic pain and low back pain Objective - Vital Signs/Intake and Output Vital Signs (last 24 hours): Temp Pulse Resp BP Pulse Ox 98.4 F 67 17 105/66 93 L 05/30/17 16:17 05/30/17 16:17 05/30/17 16:17 05/30/17 16:17 05/30/17 16:17 - Medications Medications: Current Medications Acetaminophen (Tylenol 325mg Tab) 650 mg PO Q6 PRN PRN Reason: Pain, Mild (1-3) Last Admin: 05/30/17 09:26 Dose: 650 mg Al Hydrox/Mg Hydrox/Simethicone (Maalox Plus 30 Ml) 30 ml PO Q6 PRN PRN Reason: Indigestion / Heartburn Last Admin: 05/28/17 19:01 Dose: 30 ml Albuterol/Ipratropium (Duoneb 3 Mg/0.5 Mg (3 Ml) Ud) 3 ml IH RQ8 PRN PRN Reason: Shortness of Breath Last Admin: 05/28/17 15:19 Dose: 3 ml Digoxin (Lanoxin) 0.25 mg PO DAILY [facility] Last Admin: 05/30/17 09:12 Dose: 0.25 mg Docusate Sodium (Colace) 100 mg PO BID [facility] Last Admin: 05/30/17 09:12 Dose: 100 mg Famotidine (Pepcid) 20 mg PO DAILY PRN PRN Reason: Heartburn Last Admin: 05/30/17 09:13 Dose: 20 mg Ciprofloxacin (Cipro 400mg/200ml Dsw) 400 mg in 200 mls @ 200 mls/hr IVPB Q12 [facility] PRN Reason: Protocol Last Admin: 05/30/17 09:22 Dose: 200 mls/hr Lactulose (Enulose) 20 gm PO DAILY PRN PRN Reason: Constipation Lorazepam (Ativan) 1 mg PO Q8 PRN PRN Reason: Anxiety Morphine Sulfate (Morphine) 2 mg IVP Q4 PRN PRN Reason: Pain, severe (8-10) Last Admin: 05/30/17 00:05 Dose: 2 mg Ondansetron HCl (Zofran Tab) 4 mg PO DAILY PRN PRN Reason: Nausea/Vomiting Last Admin: 05/29/17 10:30 Dose: 4 mg Pantoprazole Sodium (Protonix Ec Tab) 40 mg PO DAILY [facility] Last Admin: 05/30/17 09:12 Dose: 40 mg Phenobarbital (Phenobarbital Tab) 60 mg PO DAILY@1300 [facility] Last Admin: 05/30/17 15:48 Dose: 60 mg Phenobarbital (Phenobarbital Tab) 90 mg PO AMHS [facility] Last Admin: 05/30/17 09:25 Dose: 90 mg Phenytoin (Dilantin) 300 mg PO BID [facility] Last Admin: 05/30/17 09:12 Dose: 300 mg Phenytoin Sodium (Dilantin) 200 mg PO DAILY@1230 [facility] Last Admin: 05/30/17 13:10 Dose: 200 mg Fluticasone/Salmeterol (Advair Diskus 500/50) 1 puff IH Q12 [facility] Last Admin: 05/30/17 09:11 Dose: 1 puff Tiotropium [place] (Spiriva) 18 mcg IH DAILY [facility] Last Admin: 05/30/17 09:13 Dose: 18 mcg Venlafaxine HCl (Effexor) 75 mg PO DAILY [facility] Last Admin: 05/30/17 09:13 Dose: 75 mg - Labs Labs: 05/30/17 12:58 05/30/17 12:58 PT 13.3 Seconds (9.8-13.1) H 05/30/17 12:58 INR 1.2 (0.9-1.2) 05/30/17 12:58 APTT 32.0 Seconds (25.6-37.1) 05/26/17 11:00 - Constitutional Appears: Chronically Ill - Head Exam Head Exam: NORMAL INSPECTION - Eye Exam Eye Exam: PERRL - ENT Exam ENT Exam: Normal Exam - Neck Exam Neck Exam: Normal Inspection - Respiratory Exam Respiratory Exam: Decreased Breath Sounds (at bases) - Cardiovascular Exam Cardiovascular Exam: REGULAR RHYTHM - GI/Abdominal Exam GI & Abdominal Exam: Soft, Tenderness (suprapubic), Normal Bowel Sounds. absent : Guarding, Rebound - Extremities Exam Extremities Exam: Normal Inspection - Back Exam Back Exam: tenderness - Neurological Exam Neurological Exam: Alert, CN II-XII Intact, Oriented x3 Additional comments: no focal/motor sensory deficit - Psychiatric Exam Psychiatric exam: Anxious - Skin Skin Exam: Normal Color Assessment and Plan (1) Suprapubic pain, acute Status: Acute (2) Post-menopause bleeding Status: Chronic (3) UTI (urinary tract infection) Assessment & Plan: E Coli S to Cipro Status: Acute (4) Seizure Status: Chronic (5) COPD (chronic obstructive pulmonary disease) Status: Chronic - Assessment and Plan (Free Text) Plan: ECHO , EKG normal , Patient was cleared by Cardiology. Patient is medically cleared for Surgery
[2017-05-31 05:43] LABS: ALB/GLOB RATIO 1.2 (1.0-2.1); ALT/SGPT 53 U/L (9-52); AST/SGOT 48 U/L (14-36); BLOOD UREA NITROGEN 16 mg/dl (7-17); CALCIUM 8.8 mg/dL (8.4-10.2); GFR AFRICAN-AMERICAN > 60; GFR NON-AFRICAN AMERICAN > 60
[2017-05-31] MEDS ORDERED: Propofol 10 mg/ml Inj (20 ML) ONE (07:35)
[2017-05-31] MEDS ORDERED: Succinylcholine 200 mg/10 ml Inj IV ONE (07:35)
[2017-05-31] MEDS ORDERED: Lidocaine 4% (Laryng-O-Jet) Kit MM ONE (07:35)
[2017-05-31] MEDS ORDERED: Lactated Ringer's 1,000 ML IV ONE (07:45)
[2017-05-31] MEDS ORDERED: Midazolam 2 MG/2 ML VIAL ONE (08:13)
[2017-05-31] MEDS ORDERED: Dexamethasone 4 mg/1 ml ONE (08:32)
[2017-05-31] MEDS ORDERED: HYDROmorphone 0.5 mg/0.5 ml ISec IVP PRN (08:54)
[2017-05-31] MEDS ORDERED: Albuterol-Ipratrop 3 mg / 0.5 (3 ml) UD INH STA (08:56)
[2017-05-31] MEDS ORDERED: Albuterol-Ipratrop 3 mg / 0.5 (3 ml) UD ONE (08:58)
[2017-05-31] MEDS: Fluticasone-Salmeterol 500-50mcg Diskus IH SCH ×2 (09:00→23:02)
[2017-05-31] MEDS: Phenytoin 100 mg/4 ml Oral Susp UD PO SCH ×2 (09:00→18:15)
[2017-05-31] MEDS ORDERED: Oxycodone/Acetaminophen 5/325 mg Tab PO PRN (09:22)
[2017-05-31] MEDS: Ciprofloxacin 400mg/200ml D5W 400 MG/200 ML BAG IVPB SCH ×2 (10:25→22:00)
[2017-05-31] MEDS: Lactated Ringer's 1,000 ML IV SCH ×2 (11:41→22:00)
[2017-05-31] MEDS: Albuterol-Ipratrop 3 mg / 0.5 (3 ml) UD IH SCH ×2 (12:27→15:52)
--- NOTE | 2017-05-31 12:46 | CP.PCM.PN ---
Subjective - Date & Time of Evaluation Date of Evaluation: 05/31/17 Time of Evaluation: 12:10 - Subjective Subjective: F/U Vaginal bleeding mild suprapubic pain s/p D&C Objective - Vital Signs/Intake and Output Vital Signs (last 24 hours): Temp Pulse Resp BP Pulse Ox 97.6 F 68 18 120/83 96 05/31/17 12:00 05/31/17 12:00 05/31/17 12:00 05/31/17 12:00 05/31/17 12:00 Intake and Output: 05/31/17 05/31/17 06:59 18:59 Intake Total 500 Balance 500 - Medications Medications: Current Medications Acetaminophen (Tylenol 325mg Tab) 650 mg PO Q6 PRN PRN Reason: Pain, Mild (1-3) Last Admin: 05/30/17 18:33 Dose: 650 mg Al Hydrox/Mg Hydrox/Simethicone (Maalox Plus 30 Ml) 30 ml PO Q6 PRN PRN Reason: Indigestion / Heartburn Last Admin: 05/28/17 19:01 Dose: 30 ml Albuterol/Ipratropium (Duoneb 3 Mg/0.5 Mg (3 Ml) Ud) 3 ml IH RQ8 [facility] Last Admin: 05/31/17 12:27 Dose: 3 ml Digoxin (Lanoxin) 0.25 mg PO DAILY [facility] Last Admin: 05/30/17 09:12 Dose: 0.25 mg Docusate Sodium (Colace) 100 mg PO BID [facility] Last Admin: 05/30/17 17:39 Dose: 100 mg Famotidine (Pepcid) 20 mg PO DAILY PRN PRN Reason: Heartburn Last Admin: 05/30/17 09:13 Dose: 20 mg Ciprofloxacin (Cipro 400mg/200ml Dsw) 400 mg in 200 mls @ 200 mls/hr IVPB Q12 [facility] PRN Reason: Protocol Last Admin: 05/31/17 10:25 Dose: 200 mls/hr Lactated Ringer's (Lactated Ringer's) 1,000 mls @ 75 mls/hr IV .[id number] [facility] Lactulose (Enulose) 20 gm PO DAILY PRN PRN Reason: Constipation Last Admin: 05/30/17 17:39 Dose: 20 gm Lorazepam (Ativan) 1 mg PO Q8 PRN PRN Reason: Anxiety Ondansetron HCl (Zofran Tab) 4 mg PO DAILY PRN PRN Reason: Nausea/Vomiting Last Admin: 05/29/17 10:30 Dose: 4 mg Oxycodone/Acetaminophen (Percocet 5/325 Mg Tab) 1 tab PO Q4 PRN PRN Reason: Pain, moderate (4-7) Stop: 06/03/17 09:23 Pantoprazole Sodium (Protonix Ec Tab) 40 mg PO DAILY [facility] Last Admin: 05/30/17 09:12 Dose: 40 mg Phenobarbital (Phenobarbital Tab) 60 mg PO DAILY@1300 [facility] Last Admin: 05/30/17 15:48 Dose: 60 mg Phenobarbital (Phenobarbital Tab) 90 mg PO AMHS [facility] Last Admin: 05/30/17 23:08 Dose: 90 mg Phenytoin (Dilantin) 300 mg PO BID [facility] Last Admin: 05/30/17 17:39 Dose: 300 mg Phenytoin Sodium (Dilantin) 200 mg PO DAILY@1230 [facility] Last Admin: 05/30/17 13:10 Dose: 200 mg Fluticasone/Salmeterol (Advair Diskus 500/50) 1 puff IH Q12 [facility] Last Admin: 05/30/17 21:05 Dose: 1 puff Tiotropium [place] (Spiriva) 18 mcg IH DAILY [facility] Last Admin: 05/30/17 09:13 Dose: 18 mcg Venlafaxine HCl (Effexor) 75 mg PO DAILY [facility] Last Admin: 05/30/17 09:13 Dose: 75 mg - Labs Labs: 05/30/17 12:58 05/31/17 04:20 PT 13.3 Seconds (9.8-13.1) H 05/30/17 12:58 INR 1.2 (0.9-1.2) 05/30/17 12:58 APTT 32.0 Seconds (25.6-37.1) 05/26/17 11:00 - Constitutional Appears: Chronically Ill - Head Exam Head Exam: NORMAL INSPECTION - Eye Exam Eye Exam: PERRL - ENT Exam ENT Exam: Normal Exam - Neck Exam Neck Exam: Normal Inspection - Respiratory Exam Respiratory Exam: Decreased Breath Sounds (at bases) - Cardiovascular Exam Cardiovascular Exam: REGULAR RHYTHM - GI/Abdominal Exam GI & Abdominal Exam: Soft, Tenderness (suprapubic), Normal Bowel Sounds - Extremities Exam Extremities Exam: Normal Inspection - Back Exam Back Exam: NORMAL INSPECTION - Neurological Exam Neurological Exam: Alert, Oriented x3. absent: Motor Sensory Deficit - Psychiatric Exam Psychiatric exam: Anxious, Depressed - Skin Skin Exam: Warm Assessment and Plan (1) S/P D&C (status post dilation and curettage) Status: Acute (2) Suprapubic pain, acute Status: Acute (3) Post-menopause bleeding Status: Chronic (4) UTI (urinary tract infection) Status: Acute (5) Seizure Status: Chronic (6) COPD (chronic obstructive pulmonary disease) Status: Chronic - Assessment and Plan (Free Text) Plan: stable s/p D&C , continue current meds
[2017-05-31] MEDS: Digoxin 250 mcg (0.25 mg) Tab PO SCH (13:24)
[2017-05-31] MEDS: Pantoprazole 40 mg EC Tab PO SCH (18:15)
[2017-05-31] MEDS: Tiotropium 18 mcg Cap For Inhalation IH SCH (18:16)
[2017-06-01] MEDS: Albuterol-Ipratrop 3 mg / 0.5 (3 ml) UD IH SCH (00:32)
[2017-06-01] MEDS: Albuterol-Ipratrop 3 mg / 0.5 (3 ml) UD INH SCH ×4 (07:35→19:04)
[2017-06-01] MEDS: Digoxin 250 mcg (0.25 mg) Tab PO SCH (08:57)
[2017-06-01] MEDS: Phenytoin 100 mg/4 ml Oral Susp UD PO SCH ×2 (08:57→18:06)
[2017-06-01] MEDS: Tiotropium 18 mcg Cap For Inhalation IH SCH (08:57)
[2017-06-01] MEDS: Fluticasone-Salmeterol 500-50mcg Diskus IH SCH ×2 (08:58→22:00)
[2017-06-01] MEDS: Pantoprazole 40 mg EC Tab PO SCH ×2 (08:58→18:06)
[2017-06-01] MEDS: Ciprofloxacin 400mg/200ml D5W 400 MG/200 ML BAG IVPB SCH ×2 (08:59→22:00)
--- NOTE | 2017-06-01 09:04 | CP.PCM.PN ---
Subjective - Date & Time of Evaluation Date of Evaluation: 06/01/17 Time of Evaluation: 09:02 - Subjective Subjective: Denieis heavy bleeding or severe pains No vomiting Objective - Vital Signs/Intake and Output Vital Signs (last 24 hours): Temp Pulse Resp BP Pulse Ox 97.7 F 84 18 142/96 H 96 06/01/17 07:59 06/01/17 07:59 06/01/17 07:59 06/01/17 07:59 06/01/17 07:59 - Medications Medications: Current Medications Acetaminophen (Tylenol 325mg Tab) 650 mg PO Q6 PRN PRN Reason: Pain, Mild (1-3) Last Admin: 06/01/17 03:36 Dose: 650 mg Al Hydrox/Mg Hydrox/Simethicone (Maalox Plus 30 Ml) 30 ml PO Q6 PRN PRN Reason: Indigestion / Heartburn Last Admin: 05/28/17 19:01 Dose: 30 ml Albuterol/Ipratropium (Duoneb 3 Mg/0.5 Mg (3 Ml) Ud) 3 ml INH RTID [facility] Last Admin: 06/01/17 07:35 Dose: 3 ml Digoxin (Lanoxin) 0.25 mg PO DAILY [facility] Last Admin: 06/01/17 08:57 Dose: 0.25 mg Docusate Sodium (Colace) 100 mg PO BID [facility] Last Admin: 06/01/17 08:58 Dose: 100 mg Famotidine (Pepcid) 20 mg PO DAILY PRN PRN Reason: Heartburn Last Admin: 05/30/17 09:13 Dose: 20 mg Lactated Ringer's (Lactated Ringer's) 1,000 mls @ 75 mls/hr IV .[id number] [facility] Last Admin: 05/31/17 22:00 Dose: 75 mls/hr Ciprofloxacin (Cipro 400mg/200ml Dsw) 400 mg in 200 mls @ 200 mls/hr IVPB Q12 [facility] PRN Reason: Protocol Last Admin: 06/01/17 08:59 Dose: 200 mls/hr Lactulose (Enulose) 20 gm PO DAILY PRN PRN Reason: Constipation Last Admin: 05/30/17 17:39 Dose: 20 gm Lorazepam (Ativan) 1 mg PO Q8 PRN PRN Reason: Anxiety Ondansetron HCl (Zofran Tab) 4 mg PO DAILY PRN PRN Reason: Nausea/Vomiting Last Admin: 05/29/17 10:30 Dose: 4 mg Oxycodone/Acetaminophen (Percocet 5/325 Mg Tab) 1 tab PO Q4 PRN PRN Reason: Pain, moderate (4-7) Stop: 06/03/17 09:23 Pantoprazole Sodium (Protonix Ec Tab) 40 mg PO DAILY [facility] Last Admin: 06/01/17 08:58 Dose: 40 mg Phenobarbital (Phenobarbital Tab) 60 mg PO DAILY@1300 [facility] Last Admin: 05/31/17 13:23 Dose: 60 mg Phenobarbital (Phenobarbital Tab) 90 mg PO AMHS [facility] Last Admin: 05/31/17 23:11 Dose: 90 mg Phenytoin (Dilantin) 300 mg PO BID [facility] Last Admin: 06/01/17 08:57 Dose: 300 mg Phenytoin Sodium (Dilantin) 200 mg PO DAILY@1230 [facility] Last Admin: 05/31/17 13:27 Dose: 200 mg Fluticasone/Salmeterol (Advair Diskus 500/50) 1 puff IH Q12 [facility] Last Admin: 06/01/17 08:58 Dose: 1 puff Tiotropium [place] (Spiriva) 18 mcg IH DAILY [facility] Last Admin: 06/01/17 08:57 Dose: 18 mcg Venlafaxine HCl (Effexor) 75 mg PO DAILY [facility] Last Admin: 05/31/17 18:17 Dose: 75 mg - Labs Labs: 05/30/17 12:58 05/31/17 04:20 PT 13.3 Seconds (9.8-13.1) H 05/30/17 12:58 INR 1.2 (0.9-1.2) 05/30/17 12:58 APTT 32.0 Seconds (25.6-37.1) 05/26/17 11:00 - Head Exam Head Exam: ATRAUMATIC - ENT Exam ENT Exam: Mucous Membranes Moist - Neck Exam Neck Exam: Full ROM - Respiratory Exam Respiratory Exam: NORMAL BREATHING PATTERN - GI/Abdominal Exam Additional comments: Abd soft nd, depressible no rebound - Exam External exam: NORMAL EXTERNAL EXAM Additional comments: minimal vaginal oozing - Extremities Exam Additional comments: no calf tenderness - Neurological Exam Neurological Exam: Alert, Awake, Oriented x3 Assessment and Plan - Assessment and Plan (Free Text) Assessment: s/p hysteroscopic endometrial polypectomy and D/C pending path report Plan: will follow in office in 2 wks to re-evaluate after path diagnosis Can be D/C from oncology physician point of view Instructions given
--- NOTE | 2017-06-01 10:35 | CP.PCM.PN ---
Subjective - Date & Time of Evaluation Date of Evaluation: 06/01/17 Time of Evaluation: 10:35 - Subjective Subjective: Ms. Rosario was seen and examined at the bedside. She is alert, oriented. She denies any dizziness, lightheadedness. She complains of abdominal pain due post D&C. She is receiving pain medication and also laxative. She is able to consume all her breakfast tray. Both dilantin and phenobarbital levels are within normal limits. dilantin 15.8 and phenobarbital of 20.4. There was no untoward events overnight. Objective - Vital Signs/Intake and Output Vital Signs (last 24 hours): Temp Pulse Resp BP Pulse Ox 97.7 F 84 18 142/96 H 96 06/01/17 07:59 06/01/17 07:59 06/01/17 07:59 06/01/17 07:59 06/01/17 07:59 - Medications Medications: Current Medications Acetaminophen (Tylenol 325mg Tab) 650 mg PO Q6 PRN PRN Reason: Pain, Mild (1-3) Last Admin: 06/01/17 09:09 Dose: 650 mg Al Hydrox/Mg Hydrox/Simethicone (Maalox Plus 30 Ml) 30 ml PO Q6 PRN PRN Reason: Indigestion / Heartburn Last Admin: 05/28/17 19:01 Dose: 30 ml Albuterol/Ipratropium (Duoneb 3 Mg/0.5 Mg (3 Ml) Ud) 3 ml INH RTID [facility] Last Admin: 06/01/17 07:35 Dose: 3 ml Digoxin (Lanoxin) 0.25 mg PO DAILY [facility] Last Admin: 06/01/17 08:57 Dose: 0.25 mg Docusate Sodium (Colace) 100 mg PO BID [facility] Last Admin: 06/01/17 08:58 Dose: 100 mg Famotidine (Pepcid) 20 mg PO DAILY PRN PRN Reason: Heartburn Last Admin: 05/30/17 09:13 Dose: 20 mg Lactated Ringer's (Lactated Ringer's) 1,000 mls @ 75 mls/hr IV .[id number] [facility] Last Admin: 05/31/17 22:00 Dose: 75 mls/hr Ciprofloxacin (Cipro 400mg/200ml Dsw) 400 mg in 200 mls @ 200 mls/hr IVPB Q12 [facility] PRN Reason: Protocol Last Admin: 06/01/17 08:59 Dose: 200 mls/hr Lactulose (Enulose) 20 gm PO DAILY PRN PRN Reason: Constipation Last Admin: 05/30/17 17:39 Dose: 20 gm Lorazepam (Ativan) 1 mg PO Q8 PRN PRN Reason: Anxiety Ondansetron HCl (Zofran Tab) 4 mg PO DAILY PRN PRN Reason: Nausea/Vomiting Last Admin: 05/29/17 10:30 Dose: 4 mg Oxycodone/Acetaminophen (Percocet 5/325 Mg Tab) 1 tab PO Q4 PRN PRN Reason: Pain, moderate (4-7) Stop: 06/03/17 09:23 Pantoprazole Sodium (Protonix Ec Tab) 40 mg PO DAILY [facility] Last Admin: 06/01/17 08:58 Dose: 40 mg Phenobarbital (Phenobarbital Tab) 60 mg PO DAILY@1300 [facility] Last Admin: 05/31/17 13:23 Dose: 60 mg Phenobarbital (Phenobarbital Tab) 90 mg PO AMHS [facility] Last Admin: 06/01/17 10:33 Dose: 90 mg Phenytoin (Dilantin) 300 mg PO BID [facility] Last Admin: 06/01/17 08:57 Dose: 300 mg Phenytoin Sodium (Dilantin) 200 mg PO DAILY@1230 [facility] Last Admin: 05/31/17 13:27 Dose: 200 mg Fluticasone/Salmeterol (Advair Diskus 500/50) 1 puff IH Q12 [facility] Last Admin: 06/01/17 08:58 Dose: 1 puff Tiotropium [place] (Spiriva) 18 mcg IH DAILY [facility] Last Admin: 06/01/17 08:57 Dose: 18 mcg Venlafaxine HCl (Effexor) 75 mg PO DAILY [facility] Last Admin: 06/01/17 10:33 Dose: 75 mg - Labs Labs: 05/30/17 12:58 05/31/17 04:20 PT 13.3 Seconds (9.8-13.1) H 05/30/17 12:58 INR 1.2 (0.9-1.2) 05/30/17 12:58 APTT 32.0 Seconds (25.6-37.1) 05/26/17 11:00 - Constitutional Appears: No Acute Distress - Head Exam Head Exam: NORMAL INSPECTION - Neurological Exam Neurological Exam: Alert, Awake, Oriented x3 Neuro motor strength exam: Left Upper Extremity: 4, Right Upper Extremity: 4, Left Lower Extremity: 4, Right Lower Extremity: 4 Additional comments: Neurological unchanged from previous examination. Assessment and Plan (1) Seizure Assessment & Plan: Case discussed with Dr. Olivares, continue all current medical including AED, physical, and occupational therapies. Recommend repeat dilantin and phenobarbital level prior to discharge. Recommend to follow up with an outpatient neurologist, if patient would like to follow up with Dr. Olivares/ Oskar at [address] [place] [address]. [address]. [facility] [address]. Tel. # [phone]. Status: Chronic
[2017-06-01] MEDS ORDERED: Bisacodyl 5mg EC Tab PO PRN (10:37)
[2017-06-01] MEDS: Alum-Mag Hydrox-Simethicone Susp (30 mL) PO PRN (14:00)
[2017-06-01 14:12] LABS: HEMOGLOBIN 13.5 g/dL (12.0-16.0); MEAN CELL VOLUME 84.5 fl (81.0-99.0); MEAN CORPUSCULAR HEMOGLOBIN 28.9 pg (27.0-31.0); MEAN CORPUSCULAR HGB CONC 34.2 g/dL (33.0-37.0); RBC 4.68 Mil/uL (3.80-5.20); RED CELL DISTRIBUTION WIDTH 14.1 % (11.5-14.5); WHITE BLOOD COUNT 6.4 K/uL (4.8-10.8)
--- NOTE | 2017-06-01 14:15 | RAD ---
HISTORY: Abdominal pain, distention COMPARISON: Comparison made with prior abdominal radiographs 06/25/2009 FINDINGS: BOWEL: No evidence of acute mechanical bowel obstruction. Appears be a relatively large amount of stool within the ascending colon which is incompletely visualized along its lateral border due to large body habitus. Evaluation for free air is limited due to the lack of erect view. BONES: Osseous structures appear grossly unremarkable OTHER FINDINGS: None. IMPRESSION: No evidence of acute mechanical bowel obstruction. Moderately large amount of stool within the ascending colon suggesting mild localized constipation.
[2017-06-01 14:24] LABS: BLOOD UREA NITROGEN 12 mg/dl (7-17); CALCIUM 8.5 mg/dL (8.4-10.2); GFR AFRICAN-AMERICAN > 60; GFR NON-AFRICAN AMERICAN 56
--- NOTE | 2017-06-01 14:31 | CP.PCM.PN ---
Subjective - Date & Time of Evaluation Date of Evaluation: 06/01/17 Time of Evaluation: 11:00 - Subjective Subjective: F/U Vaginal bleeding Complaint of chest pain, Also suprapubic pain Objective - Vital Signs/Intake and Output Vital Signs (last 24 hours): Temp Pulse Resp BP Pulse Ox 97.9 F 69 18 120/80 94 L 06/01/17 11:47 06/01/17 11:47 06/01/17 11:47 06/01/17 11:47 06/01/17 11:47 - Medications Medications: Current Medications Acetaminophen (Tylenol 325mg Tab) 650 mg PO Q6 PRN PRN Reason: Pain, Mild (1-3) Last Admin: 06/01/17 09:09 Dose: 650 mg Al Hydrox/Mg Hydrox/Simethicone (Maalox Plus 30 Ml) 30 ml PO Q6 PRN PRN Reason: Indigestion / Heartburn Last Admin: 06/01/17 14:00 Dose: 30 ml Albuterol/Ipratropium (Duoneb 3 Mg/0.5 Mg (3 Ml) Ud) 3 ml INH RTID [facility] Last Admin: 06/01/17 13:36 Dose: Not Given Bisacodyl (Dulcolax) 5 mg PO DAILY PRN PRN Reason: Constipation Digoxin (Lanoxin) 0.25 mg PO DAILY [facility] Last Admin: 06/01/17 08:57 Dose: 0.25 mg Docusate Sodium (Colace) 100 mg PO BID [facility] Last Admin: 06/01/17 08:58 Dose: 100 mg Ciprofloxacin (Cipro 400mg/200ml Dsw) 400 mg in 200 mls @ 200 mls/hr IVPB Q12 [facility] PRN Reason: Protocol Last Admin: 06/01/17 08:59 Dose: 200 mls/hr Lactulose (Enulose) 20 gm PO DAILY PRN PRN Reason: Constipation Last Admin: 05/30/17 17:39 Dose: 20 gm Lorazepam (Ativan) 1 mg PO Q8 PRN PRN Reason: Anxiety Morphine Sulfate (Morphine) 2 mg IVP Q4 PRN PRN Reason: Pain, severe (8-10) Ondansetron HCl (Zofran Tab) 4 mg PO DAILY PRN PRN Reason: Nausea/Vomiting Last Admin: 06/01/17 11:57 Dose: 4 mg Oxycodone/Acetaminophen (Percocet 5/325 Mg Tab) 1 tab PO Q4 PRN PRN Reason: Pain, moderate (4-7) Stop: 06/03/17 09:23 Pantoprazole Sodium (Protonix Ec Tab) 40 mg PO BID [facility] Phenobarbital (Phenobarbital Tab) 60 mg PO DAILY@1300 [facility] Last Admin: 06/01/17 13:58 Dose: 60 mg Phenobarbital (Phenobarbital Tab) 90 mg PO AMHS [facility] Last Admin: 06/01/17 10:33 Dose: 90 mg Phenytoin (Dilantin) 300 mg PO BID [facility] Last Admin: 06/01/17 08:57 Dose: 300 mg Phenytoin Sodium (Dilantin) 200 mg PO DAILY@1230 [facility] Last Admin: 06/01/17 13:58 Dose: 200 mg Fluticasone/Salmeterol (Advair Diskus 500/50) 1 puff IH Q12 [facility] Last Admin: 06/01/17 08:58 Dose: 1 puff Tiotropium [place] (Spiriva) 18 mcg IH DAILY [facility] Last Admin: 06/01/17 08:57 Dose: 18 mcg Venlafaxine HCl (Effexor) 75 mg PO DAILY [facility] Last Admin: 06/01/17 10:33 Dose: 75 mg - Labs Labs: 06/01/17 13:45 06/01/17 13:45 PT 13.3 Seconds (9.8-13.1) H 05/30/17 12:58 INR 1.2 (0.9-1.2) 05/30/17 12:58 APTT 32.0 Seconds (25.6-37.1) 05/26/17 11:00 - Constitutional Appears: Chronically Ill - Head Exam Head Exam: NORMAL INSPECTION - Eye Exam Eye Exam: PERRL - ENT Exam ENT Exam: Normal Exam - Neck Exam Neck Exam: Normal Inspection - Respiratory Exam Respiratory Exam: Decreased Breath Sounds (at bases) - Cardiovascular Exam Cardiovascular Exam: REGULAR RHYTHM Additional comments: Chest wall tenderness - GI/Abdominal Exam GI & Abdominal Exam: Tenderness (suprapubic) Additional comments: Suprapubic - Back Exam Back Exam: tenderness - Neurological Exam Neurological Exam: Alert, CN II-XII Intact, Oriented x3 (No focal motor or sensory deficit) - Psychiatric Exam Psychiatric exam: Anxious - Skin Skin Exam: Warm Assessment and Plan (1) S/P D&C (status post dilation and curettage) Status: Acute (2) Suprapubic pain, acute Status: Acute (3) Post-menopause bleeding Status: Chronic (4) UTI (urinary tract infection) Status: Acute (5) Seizure Status: Chronic (6) COPD (chronic obstructive pulmonary disease) Status: Chronic (7) Chest pain Status: Acute - Assessment and Plan (Free Text) Plan: EKG troponin 3, flat plate of the abdomen , Cipro IV for UTI E. Coli .
--- NOTE | 2017-06-01 14:31 | RAD ---
HISTORY: cp COMPARISON: Portable chest 05/26/2017. FINDINGS: LUNGS: Inspiratory volume appears diminished with limited penetration of the bases in the periphery. Limited left lateral basilar infiltrate or atelectasis is not excluded. None is appreciated at the right. PLEURA: No right pleural effusion. Trace of pleural effusion difficult to fully exclude in the interval. No pneumothorax bilaterally. CARDIOVASCULAR: Prominent cardiac silhouette unchanged. Borderline pulmonary venous congestion. OSSEOUS STRUCTURES: No significant abnormalities. VISUALIZED UPPER ABDOMEN: Normal. OTHER FINDINGS: None. IMPRESSION: Limited history effort degrades quality of the exam. Limited pulmonary venous congestion is difficult to exclude as well as trace left pleural effusion or airspace disease at the lateral left base. Stable cardiomegaly.
[2017-06-02] MEDS: Albuterol-Ipratrop 3 mg / 0.5 (3 ml) UD INH SCH ×2 (07:11→13:25)
[2017-06-02 08:22] VITALS: RESP 20
[2017-06-02] MEDS: Pantoprazole 40 mg EC Tab PO SCH (09:29)
[2017-06-02] MEDS: Tiotropium 18 mcg Cap For Inhalation IH SCH (09:29)
[2017-06-02] MEDS: Phenytoin 100 mg/4 ml Oral Susp UD PO SCH (09:30)
[2017-06-02] MEDS: Ciprofloxacin 400mg/200ml D5W 400 MG/200 ML BAG IVPB SCH (09:31)
[2017-06-02] MEDS: Digoxin 250 mcg (0.25 mg) Tab PO SCH (09:32)
[2017-06-02 09:33] VITALS: PULSE 64
--- NOTE | 2017-06-02 10:02 | CARD ---
APPROVED REPORT EKG Measurement Heart [id number] <Conclusion> Normal sinus rhythm Cannot rule out Inferior infarct, age undetermined-not diagnostic T wave abnormality, consider anterior ischemia Abnormal ECG
--- NOTE | 2017-06-02 10:31 | CP.PCM.PN ---
Subjective - Date & Time of Evaluation Date of Evaluation: 06/02/17 Time of Evaluation: 10:30 - Subjective Subjective: Ms. Rosario was seen and examined at the bedside. She is alert, oriented. She denies any dizziness, lightheadedness. She claims of feeling better after bowel movement yesterday and would like to go home today. She is able to consume all her breakfast tray. Both dilantin and phenobarbital levels are within normal limits. dilantin 15.8 and phenobarbital of 20.4. There was no untoward events overnight. Objective - Vital Signs/Intake and Output Vital Signs (last 24 hours): Temp Pulse Resp BP Pulse Ox 98.3 F 62 20 108/78 93 L 06/02/17 08:22 06/02/17 08:22 06/02/17 08:22 06/02/17 08:22 06/02/17 08:22 - Medications Medications: Current Medications Acetaminophen (Tylenol 325mg Tab) 650 mg PO Q6 PRN PRN Reason: Pain, Mild (1-3) Last Admin: 06/01/17 09:09 Dose: 650 mg Al Hydrox/Mg Hydrox/Simethicone (Maalox Plus 30 Ml) 30 ml PO Q6 PRN PRN Reason: Indigestion / Heartburn Last Admin: 06/01/17 14:00 Dose: 30 ml Albuterol/Ipratropium (Duoneb 3 Mg/0.5 Mg (3 Ml) Ud) 3 ml INH RTID [facility] Last Admin: 06/02/17 07:11 Dose: 3 ml Bisacodyl (Dulcolax) 5 mg PO DAILY PRN PRN Reason: Constipation Digoxin (Lanoxin) 0.25 mg PO DAILY [facility] Last Admin: 06/02/17 09:32 Dose: 0.25 mg Docusate Sodium (Colace) 100 mg PO BID [facility] Last Admin: 06/02/17 09:30 Dose: 100 mg Ciprofloxacin (Cipro 400mg/200ml Dsw) 400 mg in 200 mls @ 200 mls/hr IVPB Q12 DARRIUS PRN Reason: Protocol Last Admin: 06/02/17 09:31 Dose: 200 mls/hr Lactulose (Enulose) 20 gm PO DAILY PRN PRN Reason: Constipation Last Admin: 06/01/17 14:39 Dose: 20 gm Lorazepam (Ativan) 1 mg PO Q8 PRN PRN Reason: Anxiety Morphine Sulfate (Morphine) 2 mg IVP Q4 PRN PRN Reason: Pain, severe (8-10) Ondansetron HCl (Zofran Tab) 4 mg PO DAILY PRN PRN Reason: Nausea/Vomiting Last Admin: 06/01/17 11:57 Dose: 4 mg Oxycodone/Acetaminophen (Percocet 5/325 Mg Tab) 1 tab PO Q4 PRN PRN Reason: Pain, moderate (4-7) Stop: 06/03/17 09:23 Pantoprazole Sodium (Protonix Ec Tab) 40 mg PO BID [facility] Last Admin: 06/02/17 09:29 Dose: 40 mg Phenobarbital (Phenobarbital Tab) 60 mg PO DAILY@1300 [facility] Last Admin: 06/01/17 13:58 Dose: 60 mg Phenobarbital (Phenobarbital Tab) 90 mg PO AMHS [facility] Last Admin: 06/01/17 22:54 Dose: 90 mg Phenytoin (Dilantin) 300 mg PO BID [facility] Last Admin: 06/02/17 09:30 Dose: 300 mg Phenytoin Sodium (Dilantin) 200 mg PO DAILY@1230 [facility] Last Admin: 06/01/17 13:58 Dose: 200 mg Fluticasone/Salmeterol (Advair Diskus 500/50) 1 puff IH Q12 [facility] Last Admin: 06/01/17 22:00 Dose: 1 puff Tiotropium [place] (Spiriva) 18 mcg IH DAILY [facility] Last Admin: 06/02/17 09:29 Dose: 18 mcg Venlafaxine HCl (Effexor) 75 mg PO DAILY [facility] Last Admin: 06/02/17 09:32 Dose: 75 mg - Labs Labs: 06/01/17 13:45 06/01/17 13:45 PT 13.3 Seconds (9.8-13.1) H 05/30/17 12:58 INR 1.2 (0.9-1.2) 05/30/17 12:58 APTT 32.0 Seconds (25.6-37.1) 05/26/17 11:00 - Constitutional Appears: No Acute Distress - Head Exam Head Exam: NORMAL INSPECTION - Neurological Exam Neurological Exam: Alert, Awake, Oriented x3 Neuro motor strength exam: Left Upper Extremity: 4, Right Upper Extremity: 4, Left Lower Extremity: 4, Right Lower Extremity: 4 Additional comments: Neurological unchanged from previous examination. Assessment and Plan (1) Seizure Assessment & Plan: Case discussed with Dr. Olivares, continue all current medical including AED, physical, and occupational therapies. Recommend repeat dilantin and phenobarbital level prior to discharge. Recommend to follow up with an outpatient neurologist, if patient would like to follow up with Dr. Olivares/ Oskar at [address] [place] [address]. [address]. [facility] [address]. Tel. # [phone]. Status: Chronic
[2017-06-02] MEDS: Fluticasone-Salmeterol 500-50mcg Diskus IH SCH (10:49)
[2017-06-02 12:37] VITALS: BP 112/78; PULSE 63; TEMP 98.2; O2SAT 97
--- NOTE | 2017-06-02 13:55 | CP.PCM.PN ---
Subjective - Date & Time of Evaluation Date of Evaluation: 06/02/17 Time of Evaluation: 10:20 - Subjective Subjective: F/U S/P D&C Objective - Vital Signs/Intake and Output Vital Signs (last 24 hours): Temp Pulse Resp BP Pulse Ox 98.2 F 63 20 112/78 97 06/02/17 12:36 06/02/17 12:36 06/02/17 12:36 06/02/17 12:36 06/02/17 12:36 - Medications Medications: Current Medications Acetaminophen (Tylenol 325mg Tab) 650 mg PO Q6 PRN PRN Reason: Pain, Mild (1-3) Last Admin: 06/01/17 09:09 Dose: 650 mg Al Hydrox/Mg Hydrox/Simethicone (Maalox Plus 30 Ml) 30 ml PO Q6 PRN PRN Reason: Indigestion / Heartburn Last Admin: 06/01/17 14:00 Dose: 30 ml Albuterol/Ipratropium (Duoneb 3 Mg/0.5 Mg (3 Ml) Ud) 3 ml INH RTID [facility] Last Admin: 06/02/17 13:25 Dose: 3 ml Bisacodyl (Dulcolax) 5 mg PO DAILY PRN PRN Reason: Constipation Digoxin (Lanoxin) 0.25 mg PO DAILY [facility] Last Admin: 06/02/17 09:32 Dose: 0.25 mg Docusate Sodium (Colace) 100 mg PO BID [facility] Last Admin: 06/02/17 09:30 Dose: 100 mg Ciprofloxacin (Cipro 400mg/200ml Dsw) 400 mg in 200 mls @ 200 mls/hr IVPB Q12 [facility] PRN Reason: Protocol Last Admin: 06/02/17 09:31 Dose: 200 mls/hr Lactulose (Enulose) 20 gm PO DAILY PRN PRN Reason: Constipation Last Admin: 06/01/17 14:39 Dose: 20 gm Lorazepam (Ativan) 1 mg PO Q8 PRN PRN Reason: Anxiety Morphine Sulfate (Morphine) 2 mg IVP Q4 PRN PRN Reason: Pain, severe (8-10) Ondansetron HCl (Zofran Tab) 4 mg PO DAILY PRN PRN Reason: Nausea/Vomiting Last Admin: 06/01/17 11:57 Dose: 4 mg Oxycodone/Acetaminophen (Percocet 5/325 Mg Tab) 1 tab PO Q4 PRN PRN Reason: Pain, moderate (4-7) Stop: 06/03/17 09:23 Pantoprazole Sodium (Protonix Ec Tab) 40 mg PO BID [facility] Last Admin: 06/02/17 09:29 Dose: 40 mg Phenobarbital (Phenobarbital Tab) 60 mg PO DAILY@1300 [facility] Last Admin: 06/02/17 13:28 Dose: 60 mg Phenobarbital (Phenobarbital Tab) 90 mg PO AMHS [facility] Last Admin: 06/02/17 10:48 Dose: 90 mg Phenytoin (Dilantin) 300 mg PO BID [facility] Last Admin: 06/02/17 09:30 Dose: 300 mg Phenytoin Sodium (Dilantin) 200 mg PO DAILY@1230 [facility] Last Admin: 06/02/17 13:26 Dose: 200 mg Fluticasone/Salmeterol (Advair Diskus 500/50) 1 puff IH Q12 [facility] Last Admin: 06/02/17 10:49 Dose: 1 puff Tiotropium [place] (Spiriva) 18 mcg IH DAILY [facility] Last Admin: 06/02/17 09:29 Dose: 18 mcg Venlafaxine HCl (Effexor) 75 mg PO DAILY [facility] Last Admin: 06/02/17 09:32 Dose: 75 mg - Labs Labs: 06/01/17 13:45 06/01/17 13:45 PT 13.3 Seconds (9.8-13.1) H 05/30/17 12:58 INR 1.2 (0.9-1.2) 05/30/17 12:58 APTT 32.0 Seconds (25.6-37.1) 05/26/17 11:00 - Constitutional Appears: Chronically Ill - Head Exam Head Exam: NORMAL INSPECTION - Eye Exam Eye Exam: PERRL - ENT Exam ENT Exam: Normal Exam - Neck Exam Neck Exam: Normal Inspection - Respiratory Exam Respiratory Exam: Decreased Breath Sounds (at bases) - Cardiovascular Exam Cardiovascular Exam: REGULAR RHYTHM Additional comments: Chest wall tenderness - GI/Abdominal Exam GI & Abdominal Exam: Tenderness (suprapubic) - Back Exam Back Exam: tenderness - Neurological Exam Neurological Exam: Alert, CN II-XII Intact, Oriented x3. absent: Motor Sensory Deficit - Psychiatric Exam Psychiatric exam: Anxious - Skin Skin Exam: Warm Assessment and Plan (1) S/P D&C (status post dilation and curettage) Status: Acute (2) Suprapubic pain, acute Status: Acute (3) Post-menopause bleeding Status: Chronic (4) UTI (urinary tract infection) Status: Acute (5) Seizure Status: Chronic (6) COPD (chronic obstructive pulmonary disease) Status: Chronic (7) Chest pain Status: Acute
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
--- NOTE | 2017-06-03 10:14 | OP ---
PROCEDURE DATE: 05/31/2017 PREOPERATIVE DIAGNOSES: 1. Postmenopausal bleeding. 2. Fibroid uterus. POSTOPERATIVE DIAGNOSES: 1. Postmenopausal bleeding. 2. Fibroid uterus, pending pathology report. 3. Multiple endometrial polyps. PROCEDURES PERFORMED: 1. Suction dilatation and curettage. 2. Hysteroscopy with MyoSure polypectomy. SURGEON: Devyn Escamilla MD TYPE OF ANESTHESIA: General. ANESTHESIA ADMINISTERED BY: Tanmay Gruber MD ESTIMATED BLOOD LOSS: 100 mL. DRAINS USED: None. REPLACEMENTS USED: None. FINDINGS: 1. Uterus irregular, bulky, enlarged 12 to 14 weeks size, but difficult to assess secondary to body habitus. 2. Cervix appears thick, mobile, atrophic changes noted and bleeding per os. 3. Hysteroscopy show multiple endometrial polyps and prominent vasculature and slight sloughing of the endometrium, MyoSure multiple polypectomy performed without any complications. 4. Suction dilatation and curettage performed without any complications. DESCRIPTION OF PROCEDURE: The patient was taken to the operating room and placed in the operating table in a supine position. Following induction of general anesthesia, the patient was then replaced in a dorsal lithotomy position. Perineal and genital areas were draped and prepped in the usual sterile manner. At this time, we then proceeded to place the sterile catheter in the bladder, clear fluid was then evacuated from the bladder. The patient was then examined under anesthesia with some of the above findings. Heavy weighted speculum was then placed in the posterior wall of the vagina exposing the cervix. The anterior lip of the cervix was then grasped using a single tooth tenaculum and retracted superiorly. At this time, the endocervical canal was then curetted using a Mathew curette, minimal amount of tissue obtained and sent to pathology. The endocervical canal was then dilated using Stephen dilators in an increasing size manner. At this time, we then proceeded from the endometrial cavity, which sounded to about 5 inches. Following this, using a hysteroscope that was placed at the endocervical canal and advanced under direct visualization, hysteroscopy performed showing multiple endometrial polyps with increased vasculature and slightly sloughing endometrium. At this time, multiple polypectomy performed using MyoSure procedure under direct visualization. Specimen sent to pathology. Following this, the hysteroscope was then removed under direct visualization and curettage of the endometrial cavity was then performed using sharp curettage, moderate amount of tissue obtained and sent to pathology. At this time, single tooth tenaculum was then removed, no bleeding noted. The patient tolerated the procedure well. There were no complications. She was transferred to the recovery room in satisfactory condition. Devyn Escamilla MD MTDD
--- NOTE | 2017-06-08 09:52 | CP.PCM.DIS ---
Provider - Provider Date of Admission: 05/29/17 15:46 Attending physician: Kana Velarde MD Consults: Cardiology, Neurology, Psychology and [employer]. Time Spent in preparation of Discharge (in minutes): 25 Diagnosis - Discharge Diagnosis (1) S/P D&C (status post dilation and curettage) Status: Acute Priority: High (2) Suprapubic pain, acute Status: Acute Priority: High (3) Post-menopause bleeding Status: Deleted Priority: High (4) UTI (urinary tract infection) Status: Acute Priority: High (5) Seizure Status: Chronic Priority: High (6) COPD (chronic obstructive pulmonary disease) Status: Chronic Priority: Medium (7) Chest pain Status: Acute Hospital Course - Lab Results Lab Results: Micro Results 05/26/17 11:30 Blood Blood Culture - Final NO GROWTH AFTER 5 DAYS 05/26/17 11:30 Blood Gram Stain - Final TEST NOT PERFORMED 05/26/17 11:00 Blood Blood Culture - Final NO GROWTH AFTER 5 DAYS 05/26/17 11:00 Blood Gram Stain - Final TEST NOT PERFORMED 05/26/17 11:20 Urine Urine Culture - Final Escherichia Coli Most Recent Lab Values WBC 6.4 K/uL (4.8-10.8) 06/01/17 13:45 RBC 4.68 Mil/uL (3.80-5.20) 06/01/17 13:45 Hgb 13.5 g/dL (12.0-16.0) 06/01/17 13:45 Hct 39.5 % (34.0-47.0) 06/01/17 13:45 MCV 84.5 fl (81.0-99.0) 06/01/17 13:45 MCH 28.9 pg (27.0-31.0) 06/01/17 13:45 MCHC 34.2 g/dL (33.0-37.0) 06/01/17 13:45 RDW 14.1 % (11.5-14.5) 06/01/17 13:45 Plt Count 145 K/uL (130-400) 06/01/17 13:45 MPV 7.8 fl (7.2-11.7) 05/26/17 11:00 Neut % (Auto) 69.4 % (50.0-75.0) 05/26/17 11:00 Lymph % (Auto) 21.5 % (20.0-40.0) 05/26/17 11:00 [place] % (Auto) 6.3 % (0.0-10.0) 05/26/17 11:00 Eos % (Auto) 2.5 % (0.0-4.0) 05/26/17 11:00 Baso % (Auto) 0.3 % (0.0-2.0) 05/26/17 11:00 Neut # (Auto) 6.8 K/uL (1.8-7.0) 05/26/17 11:00 Lymph # (Auto) 2.1 K/uL (1.0-4.3) 05/26/17 11:00 [place] # (Auto) 0.6 K/uL (0.0-0.8) 05/26/17 11:00 Eos # (Auto) 0.2 K/uL (0.0-0.7) 05/26/17 11:00 Baso # (Auto) 0.0 K/uL (0.0-0.2) 05/26/17 11:00 PT 13.3 Seconds (9.8-13.1) H 05/30/17 12:58 INR 1.2 (0.9-1.2) 05/30/17 12:58 APTT 32.0 Seconds (25.6-37.1) 05/26/17 11:00 pO2 43 mm/Hg (30-55) 05/26/17 10:49 VBG pH 7.33 (7.32-7.43) 05/26/17 10:49 VBG pCO2 52 mmHg (40-60) 05/26/17 10:49 VBG HCO3 24.7 mmol/L 05/26/17 10:49 VBG Total CO2 29.0 mmol/L (22-28) H 05/26/17 10:49 VBG O2 Sat (Calc) 81.6 % (40-65) H 05/26/17 10:49 VBG Base Excess 0.5 mmol/L (0.0-2.0) 05/26/17 10:49 VBG Potassium 4.0 mmol/L (3.6-5.2) 05/26/17 10:49 Sodium 138.0 mmol/L (132-148) 05/26/17 10:49 Chloride 106.0 mmol/L (98-107) 05/26/17 10:49 Glucose 105 mg/dL (65-105) 05/26/17 10:49 Lactate 1.3 mmol/L (0.7-2.1) 05/26/17 10:49 FiO2 21.0 % 05/26/17 10:49 Sodium 140 mmol/l (132-148) 06/01/17 13:45 Potassium 4.0 MMOL/L (3.6-5.0) 06/01/17 13:45 Chloride 99 mmol/L (98-107) 06/01/17 13:45 Carbon Dioxide 29 mmol/L (22-30) 06/01/17 13:45 Anion Gap 16 (10-20) 06/01/17 13:45 BUN 12 mg/dl (7-17) 06/01/17 13:45 Creatinine 1.0 mg/dl (0.7-1.2) 06/01/17 13:45 Est GFR ( Amer) > 60 06/01/17 13:45 Est GFR (Non-Af Amer) 56 06/01/17 13:45 Random Glucose 102 mg/dL (65-105) 06/01/17 13:45 Calcium 8.5 mg/dL (8.4-10.2) 06/01/17 13:45 Total Bilirubin 0.4 mg/dl (0.2-1.3) 05/31/17 04:20 AST 48 U/L (14-36) H 05/31/17 04:20 ALT 53 U/L (9-52) H 05/31/17 04:20 Alkaline Phosphatase 128 U/L (38-126) H 05/31/17 04:20 Troponin I < 0.0120 ng/mL (0.00-0.120) 06/01/17 13:45 NT-Pro-B Natriuret Pep 114 pg/ml (0-900) 05/26/17 11:00 Total Protein 7.5 G/DL (6.3-8.2) 05/31/17 04:20 Albumin 4.0 g/dL (3.5-5.0) 05/31/17 04:20 Globulin 3.5 gm/dL (2.2-3.9) 05/31/17 04:20 Albumin/Globulin Ratio 1.2 (1.0-2.1) 05/31/17 04:20 Venous Blood Potassium 4.0 mmol/L (3.6-5.2) 05/26/17 10:49 Urine Color Yellow (YELLOW) 05/26/17 11:20 Urine Clarity Cloudy (Clear) 05/26/17 11:20 Urine pH 6.0 (5.0-8.0) 05/26/17 11:20 Ur Specific [place] 1.014 (1.003-1.030) 05/26/17 11:20 Urine Protein Negative mg/dL (NEGATIVE) 05/26/17 11:20 Urine Glucose (UA) Neg mg/dL (Normal) 05/26/17 11:20 Urine Ketones Negative mg/dL (NEGATIVE) 05/26/17 11:20 Urine Blood Moderate (NEGATIVE) 05/26/17 11:20 Urine Nitrate Negative (NEGATIVE) 05/26/17 11:20 Urine Bilirubin Negative (NEGATIVE) 05/26/17 11:20 Urine Urobilinogen 0.2-1.0 mg/dL (0.2-1.0) 05/26/17 11:20 Ur Leukocyte Esterase Mod Job/uL (Negative) 05/26/17 11:20 Urine RBC (Auto) 102 /hpf (0-3) H 05/26/17 11:20 Urine Microscopic WBC 62 /hpf (0-5) H 05/26/17 11:20 Ur Squamous Epith Cells 3 /hpf (0-5) 05/26/17 11:20 Urine Bacteria Occ (<OCC) H 05/26/17 11:20 Digoxin 1.2 ng/mL (0.8-2.0) 06/01/17 13:45 Phenytoin 16.7 ug/ML (10-20) 06/02/17 11:00 Free Phenytoin TNP 05/27/17 08:40 Phenobarbital 25.7 mg/L (15.0-40.0) 06/02/17 11:00 - Date & Time of H&P Date of H&P: 05/27/17 Discharge Exam - Head Exam Head Exam: NORMAL INSPECTION Discharge Plan - Discharge Medications Prescriptions: Ciprofloxacin Lactate [Ciprofloxacin] 400 mg IV Q12 #4 vial - Follow Up Plan Condition: FAIR Disposition: TRANSF TO SNF Instructions: Seizures, Adult (DC) Additional Instructions: pt. cleared for d/c to TCU today by and cont. iv abx for UTI cont., PT/OT Referrals: Devyn Escamilla MD [Staff Provider] - Kana Velarde MD [Family Provider] -
--- NOTE | 2017-06-08 10:41 | PQF GENQUE ---
Dr. 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 This form is a permanent part of the medical record Clarification of your documentation is requested to better reflect the severity of illness and intensity of treatment of your patient. Indicators present [] Specify: [] [] Specify: [] [] Specify: [] [] Specify: [] Location in the medical record that reflects the above clinical findings: [] Treatment Provided: [] PHYSICIAN'S RESPONSE Based on your medical judgment of the clinical indicators outlined above please clarify the following: [] Practitioner response [] If unable to determine, please check the box, sign and date. Present On Admission (POA) Indicator: [] Present at the time of admission [] Not present at the time of admission [] Clinically Undetermined In responding to this query, please exercise your independent professional judgment. The fact that a question is asked does not imply that any particular answer is desired or expected. Thank you for your clarification on this documentation. If you have any questions please call:[ ] * Thank you, [ ]Orin Ramirez third miller [place]
== END 2017-06-02 14:20 | DRG 363 ==
LOC: H.ER 10:01 → H.ERHOLD 13:58 → H.TEL 15:57 → OBSVTOIN 05-29 15:46
PROVIDERS: ADMIT Internal Medicine Pulmonary Disease; ATTEND Internal Medicine Pulmonary Disease
PROC: 0UDB8ZX Extraction of Endometrium, Via Natural or Artificial Opening Endoscopic, Diagnostic (ICD-10-PCS; 2017-05-31)
PROC: 0UB98ZX Excision of Uterus, Via Natural or Artificial Opening Endoscopic, Diagnostic (ICD-10-PCS; principal; 2017-05-31 07:45)
DX: C54.1 Malignant neoplasm of endometrium (principal); N39.0 Urinary tract infection, site not specified; J43.9 Emphysema, unspecified; N95.0 Postmenopausal bleeding; B96.20 Unspecified Escherichia coli [E. coli] as the cause of diseases classified elsewhere; G40.909 Epilepsy, unspecified, not intractable, without status epilepticus; D25.9 Leiomyoma of uterus, unspecified; E66.01 Morbid (severe) obesity due to excess calories; Z68.41 Body mass index [BMI] 40.0-44.9, adult; Z87.891 Personal history of nicotine dependence; N84.0 Polyp of corpus uteri; F41.0 Panic disorder [episodic paroxysmal anxiety]

== ENCOUNTER 2017-06-02 12:23 | Inpatient (IN) | payer MEDICAID ==
[2017-06-02 15:00] VITALS: BMI 42.6
[2017-06-02 16:02] VITALS: RESP 20
[2017-06-02] MEDS ORDERED: Bisacodyl 5mg EC Tab PO PRN (16:03)
[2017-06-02] MEDS ORDERED: Alum-Mag Hydrox-Simethicone Susp (30 mL) PO PRN (16:03)
[2017-06-02] MEDS ORDERED: Albuterol-Ipratrop 3 mg / 0.5 (3 ml) UD IH PRN (16:22)
[2017-06-02] MEDS ORDERED: Oxycodone/Acetaminophen 5/325 mg Tab PO PRN (16:22)
[2017-06-02] MEDS ORDERED: Phenytoin 100 mg/4 ml Oral Susp UD PO SCH (17:00)
[2017-06-02] MEDS ORDERED: Ciprofloxacin 200mg/100ml D5W 100 ML IVPB SCH (17:00)
[2017-06-02] MEDS: Ciprofloxacin 400mg/200ml D5W 400 MG/200 ML BAG IVPB SCH (18:22)
[2017-06-02] MEDS ORDERED: [UNRECOGNIZED DRUG - OTHER] IV SCH (21:00)
[2017-06-02] MEDS ORDERED: Ciprofloxacin 400mg/200ml D5W 400 MG/200 ML BAG IVPB SCH (21:00)
[2017-06-02] MEDS: Pantoprazole 40 mg EC Tab PO SCH (21:31)
[2017-06-02] MEDS: Fluticasone-Salmeterol 500-50mcg Diskus IH SCH (21:32)
[2017-06-03] MEDS: Ciprofloxacin 400mg/200ml D5W 400 MG/200 ML BAG IVPB SCH ×2 (05:41→16:57)
[2017-06-03 07:17] LABS: HEMOGLOBIN 13.7 g/dL (12.0-16.0); MEAN CELL VOLUME 86.7 fl (81.0-99.0); MEAN CORPUSCULAR HGB CONC 33.4 g/dL (33.0-37.0); RBC 4.74 Mil/uL (3.80-5.20); RED CELL DISTRIBUTION WIDTH 14.1 % (11.5-14.5); WHITE BLOOD COUNT 6.7 K/uL (4.8-10.8)
[2017-06-03 07:20] LABS: BLOOD UREA NITROGEN 14 mg/dl (7-17); CALCIUM 8.8 mg/dL (8.4-10.2); GFR AFRICAN-AMERICAN > 60; GFR NON-AFRICAN AMERICAN > 60
[2017-06-03] MEDS: Pantoprazole 40 mg EC Tab PO SCH ×2 (09:02→16:59)
[2017-06-03] MEDS: Tiotropium 18 mcg Cap For Inhalation IH SCH (09:02)
[2017-06-03] MEDS: Fluticasone-Salmeterol 500-50mcg Diskus IH SCH ×2 (09:05→21:26)
[2017-06-03] MEDS: Digoxin 250 mcg (0.25 mg) Tab PO SCH (09:05)
--- NOTE | 2017-06-03 14:02 | CP.PCM.HP ---
History of Present Illness - History of Present Illness History of Present Illness: 66 y/o F, with previous admission on 05/29/17 to [facility] due to Suprapubic pain, Post Menopause bleeding, found with UTI. On 06/02/17, Pt condition improved and was transferred to TCU to continue Abx IV course, also to benefit from PT,OT due to decreased stand/tolerance balance 2nd to morbid obesity,( BMI 43). Pt lives alone and walks with a help of a cane. Present on Admission - Present on Admission Any Indicators Present on Admission: No Review of Systems - Constitutional Constitutional: Other (negative) - EENT Eyes: Other (negative) Ears: Decreased Hearing Nose/Mouth/Throat: Other (negative) - Cardiovascular Cardiovascular: Other (negative) - Respiratory Respiratory: Other (negative) - Gastrointestinal Gastrointestinal: Other (negative) - Genitourinary Genitourinary: Other (suprapubic pain) - Musculoskeletal Musculoskeletal: Arthralgias, Other (knees pain) - Integumentary Integumentary: Other (negative) - Neurological Neurological: Convulsions - Psychiatric Psychiatric: Anxiety, Depression - Endocrine Endocrine: Other (morbid obesity) - Hematologic/Lymphatic Hematologic: Other (negative) Past Patient History - Past Medical History & Family History Past Medical History?: Yes Pertinent Family History: Mother due to stomach Ca. - Past Social History Smoking Status: Former Smoker Alcohol: None Drugs: Denies Home Situation {Lives}: Alone - CARDIAC Hx Cardiac Disorders: No - PULMONARY Hx Respiratory Disorders: Yes Hx Chronic Obstructive Pulmonary Disease (COPD): Yes Hx Emphysema: Yes Other/Comment: O2 at home. - NEUROLOGICAL Hx Neurological Disorder: Yes Hx Migraine: Yes Hx Seizures: Yes - HEENT Hx HEENT Problems: Yes Hx Cataracts: Yes - RENAL Hx Chronic Kidney Disease: No - ENDOCRINE/METABOLIC Hx Endocrine Disorders: Yes Other/Comment: Morbid obesity BMI 43.0Kg - HEMATOLOGICAL/ONCOLOGICAL Hx Blood Disorders: No - INTEGUMENTARY Hx Dermatological Problems: No - MUSCULOSKELETAL/RHEUMATOLOGICAL Hx Musculoskeletal Disorders: Yes (R-L knees pain) Hx Arthritis: Yes Hx Falls: Yes - GASTROINTESTINAL Hx Gastrointestinal Disorders: Yes Hx Gall Bladder Disease: Yes Hx Irritable Bowel: Yes - GENITOURINARY/GYNECOLOGICAL Hx Genitourinary Disorders: Yes Hx Postmenopausal Bleeding: Yes - PSYCHIATRIC Hx Psychophysiologic Disorder: Yes Hx Anxiety: Yes Hx Depression: Yes Hx Substance Use: No - SURGICAL HISTORY Hx Surgeries: Yes Hx Appendectomy: Yes Hx Cholecystectomy: Yes - ANESTHESIA Hx Anesthesia: Yes Hx Anesthesia Reactions: No Hx Malignant Hyperthermia: No Meds Allergies/Adverse Reactions: Allergies Allergy/AdvReac Type Severity Reaction Status Date / Time No Known Allergies Allergy Verified 06/02/17 15:39 Physical Exam - Constitutional Appears: No Acute Distress, Chronically Ill - Head Exam Head Exam: NORMAL INSPECTION - Eye Exam Eye Exam: PERRL - ENT Exam ENT Exam: Normal Exam - Neck Exam Neck exam: Positive for: Normal Inspection - Respiratory Exam Respiratory Exam: Decreased Breath Sounds (at bases) - Cardiovascular Exam Cardiovascular Exam: REGULAR RHYTHM - GI/Abdominal Exam GI & Abdominal Exam: Normal Bowel Sounds, Soft, Tenderness (mild suprapubic) - Extremities Exam Extremities exam: Positive for: normal inspection - Back Exam Back exam: NORMAL INSPECTION - Neurological Exam Neurological exam: Alert, Oriented x3 - Skin Skin Exam: Normal Color, Warm Results - Vital Signs Recent Vital Signs: Last Vital Signs Temp 96.3 F L 06/03/17 08:33 Pulse 100 H 06/03/17 11:13 Resp 20 06/03/17 08:33 BP 109/73 06/03/17 08:33 Pulse Ox 98 06/03/17 11:13 Reviewed J.P. - Labs Result Diagrams: 06/03/17 06:45 06/03/17 06:45 Labs: Laboratory Results - last 24 hr 06/03/17 06/03/17 06/03/17 06:45 06:45 06:45 WBC 6.7 RBC 4.74 Hgb 13.7 Hct 41.1 MCV 86.7 D MCH 29.0 MCHC 33.4 RDW 14.1 Plt Count 146 Sodium 143 Potassium 3.9 Chloride 97 L Carbon Dioxide 30 Anion Gap 20 BUN 14 Creatinine 0.9 Est GFR ( Amer) > 60 Est GFR (Non-Af Amer) > 60 Random Glucose 119 H Calcium 8.8 Digoxin 0.9 reviewed J.P. Assessment & Plan (1) UTI (urinary tract infection) Status: Acute Priority: High (2) S/P D&C (status post dilation and curettage) Status: Acute Priority: High Comment: 2nd to post-menopause bleeding (3) Seizure Status: Chronic Priority: High (4) COPD (chronic obstructive pulmonary disease) Status: Chronic Priority: Medium (5) History of depression Status: Chronic Priority: Medium (6) Morbid obesity with BMI of 40.0-44.9, adult Status: Chronic Priority: High - Assessment and Plan (Free Text) Plan: NC 2 L/M, continue Cipro IV, Phenobarbital, Dilantin, Spiriva, Lopressor, Lanoxin, Morphine and rest of Tx, PT,OT eval. - Date & Time Date: 06/03/17 Time: 16:00
[2017-06-04] MEDS: Ciprofloxacin 400mg/200ml D5W 400 MG/200 ML BAG IVPB SCH ×2 (05:05→16:09)
[2017-06-04] MEDS: Fluticasone-Salmeterol 500-50mcg Diskus IH SCH ×2 (08:20→21:34)
[2017-06-04] MEDS: Pantoprazole 40 mg EC Tab PO SCH ×2 (08:22→16:55)
[2017-06-04] MEDS: Digoxin 250 mcg (0.25 mg) Tab PO SCH (08:22)
[2017-06-04] MEDS: Tiotropium 18 mcg Cap For Inhalation IH SCH (08:23)
--- NOTE | 2017-06-04 15:22 | CP.PCM.PN ---
Subjective - Date & Time of Evaluation Date of Evaluation: 06/04/17 Time of Evaluation: 12:40 - Subjective Subjective: F/U UTI Denies abdominal pain, denies frequency burning during urination Objective - Vital Signs/Intake and Output Vital Signs (last 24 hours): Temp Pulse Resp BP Pulse Ox 98.0 F 64 20 107/68 99 06/04/17 08:30 06/04/17 08:30 06/04/17 08:30 06/04/17 08:30 06/04/17 08:30 - Medications Medications: Current Medications Acetaminophen (Tylenol 325mg Tab) 650 mg PO Q6 PRN PRN Reason: Pain, Mild (1-3) Al Hydrox/Mg Hydrox/Simethicone (Maalox Plus 30 Ml) 30 ml PO Q6 PRN PRN Reason: Indigestion / Heartburn Albuterol/Ipratropium (Duoneb 3 Mg/0.5 Mg (3 Ml) Ud) 3 ml IH Q8 PRN PRN Reason: Shortness of Breath Bisacodyl (Dulcolax) 5 mg PO DAILY PRN PRN Reason: Constipation Digoxin (Lanoxin) 0.25 mg PO DAILY [facility] Last Admin: 06/04/17 08:22 Dose: 0.25 mg Docusate Sodium (Colace) 100 mg PO BID [facility] Last Admin: 06/04/17 08:20 Dose: 100 mg Ciprofloxacin (Cipro 400mg/200ml Dsw) 400 mg in 200 mls @ 200 mls/hr IVPB Q12@ 0500,1700 [facility] PRN Reason: Protocol Last Admin: 06/04/17 05:05 Dose: 200 mls/hr Lactulose (Enulose) 20 gm PO DAILY PRN PRN Reason: Constipation Lorazepam (Ativan) 1 mg PO Q8 PRN PRN Reason: Anxiety Morphine Sulfate (Morphine) 2 mg IVP Q4 PRN PRN Reason: Pain, severe (8-10) Ondansetron HCl (Zofran Tab) 4 mg PO DAILY PRN PRN Reason: Nausea/Vomiting Last Admin: 06/04/17 08:22 Dose: 4 mg Oxycodone/Acetaminophen (Percocet 5/325 Mg Tab) 1 tab PO Q4 PRN PRN Reason: Pain, moderate (4-7) Stop: 04/29/18 16:23 Pantoprazole Sodium (Protonix Ec Tab) 40 mg PO BID [facility] Last Admin: 06/04/17 08:22 Dose: 40 mg Phenobarbital (Phenobarbital Tab) 60 mg PO DAILY@1300 [facility] Last Admin: 06/04/17 13:29 Dose: 60 mg Phenobarbital (Phenobarbital Tab) 90 mg PO AMHS [facility] Last Admin: 06/04/17 08:27 Dose: 90 mg Phenytoin Sodium (Dilantin) 200 mg PO DAILY@1230 [facility] Last Admin: 06/04/17 12:35 Dose: 200 mg Phenytoin Sodium (Dilantin) 300 mg PO BID [facility] Last Admin: 06/04/17 08:21 Dose: 300 mg Fluticasone/Salmeterol (Advair Diskus 500/50) 1 puff IH Q12 [facility] Last Admin: 06/04/17 08:20 Dose: 1 puff Tiotropium [place] (Spiriva) 18 mcg IH DAILY [facility] Last Admin: 06/04/17 08:23 Dose: 18 mcg Venlafaxine HCl (Effexor) 75 mg PO DAILY [facility] Last Admin: 06/04/17 08:23 Dose: 75 mg - Labs Labs: 06/03/17 06:45 06/03/17 06:45 - Constitutional Appears: No Acute Distress - Head Exam Head Exam: NORMAL INSPECTION - Eye Exam Eye Exam: PERRL - ENT Exam ENT Exam: Normal Exam - Neck Exam Neck Exam: Normal Inspection - Respiratory Exam Respiratory Exam: Decreased Breath Sounds (at bases) - Cardiovascular Exam Cardiovascular Exam: REGULAR RHYTHM - GI/Abdominal Exam GI & Abdominal Exam: Soft, Tenderness (mild suprapubic), Normal Bowel Sounds - Extremities Exam Extremities Exam: Normal Inspection - Back Exam Back Exam: tenderness (mild) - Neurological Exam Neurological Exam: Alert, Oriented x3 Additional comments: no focal , motor/sensory deficit - Psychiatric Exam Psychiatric exam: Anxious - Skin Skin Exam: Normal Color, Warm Assessment and Plan (1) UTI (urinary tract infection) Status: Acute (2) S/P D&C (status post dilation and curettage) Status: Acute (3) Seizure Status: Chronic (4) COPD (chronic obstructive pulmonary disease) Status: Chronic (5) History of depression Status: Chronic (6) Morbid obesity with BMI of 40.0-44.9, adult Status: Chronic - Assessment and Plan (Free Text) Plan: Continue Cipro , Dilantin , Phenobarbital risks of the treatment , continue PT , OT Patient with decrease balance
[2017-06-05] MEDS: Ciprofloxacin 400mg/200ml D5W 400 MG/200 ML BAG IVPB SCH ×2 (04:22→16:14)
[2017-06-05] MEDS: Fluticasone-Salmeterol 500-50mcg Diskus IH SCH ×2 (08:48→21:52)
[2017-06-05] MEDS: Tiotropium 18 mcg Cap For Inhalation IH SCH (08:49)
[2017-06-05] MEDS: Pantoprazole 40 mg EC Tab PO SCH ×2 (08:49→16:15)
[2017-06-05] MEDS: Digoxin 250 mcg (0.25 mg) Tab PO SCH (08:49)
--- NOTE | 2017-06-05 14:38 | CP.PCM.PN ---
Subjective - Date & Time of Evaluation Date of Evaluation: 06/05/17 Time of Evaluation: 12:40 - Subjective Subjective: F/U UTI No acute distress , denies burning urine , no abdominal pain Objective - Vital Signs/Intake and Output Vital Signs (last 24 hours): Temp Pulse Resp BP Pulse Ox 97.9 F 72 20 116/61 98 06/05/17 08:06 06/05/17 14:10 06/05/17 08:06 06/05/17 08:06 06/05/17 08:06 - Medications Medications: Current Medications Acetaminophen (Tylenol 325mg Tab) 650 mg PO Q6 PRN PRN Reason: Pain, Mild (1-3) Al Hydrox/Mg Hydrox/Simethicone (Maalox Plus 30 Ml) 30 ml PO Q6 PRN PRN Reason: Indigestion / Heartburn Albuterol/Ipratropium (Duoneb 3 Mg/0.5 Mg (3 Ml) Ud) 3 ml IH RTID [facility] Bisacodyl (Dulcolax) 5 mg PO DAILY PRN PRN Reason: Constipation Digoxin (Lanoxin) 0.25 mg PO DAILY [facility] Last Admin: 06/05/17 08:49 Dose: 0.25 mg Docusate Sodium (Colace) 100 mg PO BID [facility] Last Admin: 06/05/17 08:48 Dose: 100 mg Ciprofloxacin (Cipro 400mg/200ml Dsw) 400 mg in 200 mls @ 200 mls/hr IVPB Q12@ 0500,1700 [facility] PRN Reason: Protocol Last Admin: 06/05/17 04:22 Dose: 200 mls/hr Lactulose (Enulose) 20 gm PO DAILY PRN PRN Reason: Constipation Lorazepam (Ativan) 1 mg PO Q8 PRN PRN Reason: Anxiety Morphine Sulfate (Morphine) 2 mg IVP Q4 PRN PRN Reason: Pain, severe (8-10) Ondansetron HCl (Zofran Tab) 4 mg PO DAILY PRN PRN Reason: Nausea/Vomiting Last Admin: 06/04/17 08:22 Dose: 4 mg Oxycodone/Acetaminophen (Percocet 5/325 Mg Tab) 1 tab PO Q4 PRN PRN Reason: Pain, moderate (4-7) Stop: 06/05/17 16:23 Pantoprazole Sodium (Protonix Ec Tab) 40 mg PO BID [facility] Last Admin: 06/05/17 08:49 Dose: 40 mg Phenobarbital (Phenobarbital Tab) 60 mg PO DAILY@1300 [facility] Last Admin: 06/05/17 12:03 Dose: 60 mg Phenobarbital (Phenobarbital Tab) 90 mg PO AMHS [facility] Last Admin: 06/05/17 08:52 Dose: 90 mg Phenytoin Sodium (Dilantin) 200 mg PO DAILY@1230 [facility] Last Admin: 06/05/17 12:04 Dose: 200 mg Phenytoin Sodium (Dilantin) 300 mg PO BID [facility] Last Admin: 06/05/17 08:48 Dose: 300 mg Fluticasone/Salmeterol (Advair Diskus 500/50) 1 puff IH Q12 [facility] Last Admin: 06/05/17 08:48 Dose: 1 puff Tiotropium [place] (Spiriva) 18 mcg IH DAILY [facility] Last Admin: 06/05/17 08:49 Dose: 18 mcg Venlafaxine HCl (Effexor) 75 mg PO DAILY [facility] Last Admin: 06/05/17 08:48 Dose: 75 mg - Labs Labs: 06/03/17 06:45 06/03/17 06:45 - Constitutional Appears: No Acute Distress, Chronically Ill - Head Exam Head Exam: NORMAL INSPECTION - Eye Exam Eye Exam: PERRL - ENT Exam ENT Exam: Normal Exam - Neck Exam Neck Exam: Normal Inspection - Respiratory Exam Respiratory Exam: Decreased Breath Sounds (at bases) - Cardiovascular Exam Cardiovascular Exam: REGULAR RHYTHM - GI/Abdominal Exam GI & Abdominal Exam: Soft, Tenderness (mild suprapubic), Normal Bowel Sounds - Extremities Exam Extremities Exam: Normal Inspection - Back Exam Back Exam: NORMAL INSPECTION - Neurological Exam Neurological Exam: Alert, Oriented x3 Additional comments: no focal motor/sensory deficit - Psychiatric Exam Psychiatric exam: Normal Mood - Skin Skin Exam: Normal Color, Warm Assessment and Plan (1) UTI (urinary tract infection) Status: Acute (2) S/P D&C (status post dilation and curettage) Status: Acute (3) Seizure Status: Chronic (4) COPD (chronic obstructive pulmonary disease) Status: Chronic (5) History of depression Status: Chronic (6) Morbid obesity with BMI of 40.0-44.9, adult Status: Chronic - Assessment and Plan (Free Text) Plan: Continue Cipro ,Phenobarbital, Dilantin, DuoNeb, Lanoxin , PT , OT
[2017-06-05] MEDS: Albuterol-Ipratrop 3 mg / 0.5 (3 ml) UD IH SCH (19:09)
[2017-06-06] MEDS: Ciprofloxacin 400mg/200ml D5W 400 MG/200 ML BAG IVPB SCH ×2 (05:23→17:06)
[2017-06-06] MEDS: Albuterol-Ipratrop 3 mg / 0.5 (3 ml) UD IH SCH ×3 (07:24→19:30)
[2017-06-06] MEDS: Fluticasone-Salmeterol 500-50mcg Diskus IH SCH ×2 (08:08→22:00)
[2017-06-06] MEDS: Tiotropium 18 mcg Cap For Inhalation IH SCH (08:09)
[2017-06-06] MEDS: Pantoprazole 40 mg EC Tab PO SCH ×2 (08:11→17:07)
[2017-06-06] MEDS: Digoxin 250 mcg (0.25 mg) Tab PO SCH (08:11)
[2017-06-06 08:57] LABS: SQUAMOUS EPITHIAL 3 /hpf (0-5); URINE BACTERIA RARE (<OCC); URINE BILIRUBIN NEGATIVE (NEGATIVE); URINE BLOOD MODERATE (NEGATIVE); URINE CLARITY SLIGHTY-CLOUDY (Clear); URINE COLOR YELLOW (YELLOW); URINE GLUCOSE (UA) NEG (Normal); URINE LEUKOCYTE ESTERASE TRACE Leu/uL (Negative); URINE PROTEIN NEGATIVE (NEGATIVE); URINE UROBILINOGEN 0.2-1.0 mg/dL (0.2-1.0)
--- NOTE | 2017-06-06 16:35 | CP.PCM.PN ---
Subjective - Date & Time of Evaluation Date of Evaluation: 06/06/17 Time of Evaluation: 12:20 - Subjective Subjective: F/U UTI Pt with no c/o , no abdominal pain , voiding well , no burning urine Objective - Vital Signs/Intake and Output Vital Signs (last 24 hours): Temp Pulse Resp BP Pulse Ox 97.9 F 62 20 112/65 96 06/06/17 08:09 06/06/17 08:09 06/06/17 08:09 06/06/17 08:09 06/06/17 08:09 - Medications Medications: Current Medications Acetaminophen (Tylenol 325mg Tab) 650 mg PO Q6 PRN PRN Reason: Pain, Mild (1-3) Al Hydrox/Mg Hydrox/Simethicone (Maalox Plus 30 Ml) 30 ml PO Q6 PRN PRN Reason: Indigestion / Heartburn Albuterol/Ipratropium (Duoneb 3 Mg/0.5 Mg (3 Ml) Ud) 3 ml IH RTID [facility] Last Admin: 06/06/17 14:03 Dose: Not Given Bisacodyl (Dulcolax) 5 mg PO DAILY PRN PRN Reason: Constipation Digoxin (Lanoxin) 0.25 mg PO DAILY [facility] Last Admin: 06/06/17 08:11 Dose: 0.25 mg Docusate Sodium (Colace) 100 mg PO BID [facility] Last Admin: 06/06/17 08:10 Dose: 100 mg Ciprofloxacin (Cipro 400mg/200ml Dsw) 400 mg in 200 mls @ 200 mls/hr IVPB Q12@ 0500,1700 [facility] PRN Reason: Protocol Last Admin: 06/06/17 05:23 Dose: 200 mls/hr Lactulose (Enulose) 20 gm PO DAILY PRN PRN Reason: Constipation Lorazepam (Ativan) 1 mg PO Q8 PRN PRN Reason: Anxiety Morphine Sulfate (Morphine) 2 mg IVP Q4 PRN PRN Reason: Pain, severe (8-10) Ondansetron HCl (Zofran Tab) 4 mg PO DAILY PRN PRN Reason: Nausea/Vomiting Last Admin: 06/04/17 08:22 Dose: 4 mg Pantoprazole Sodium (Protonix Ec Tab) 40 mg PO BID [facility] Last Admin: 06/06/17 08:11 Dose: 40 mg Phenobarbital (Phenobarbital Tab) 60 mg PO DAILY@1300 [facility] Last Admin: 06/06/17 13:21 Dose: 60 mg Phenobarbital (Phenobarbital Tab) 90 mg PO AMHS [facility] Last Admin: 06/06/17 09:47 Dose: 90 mg Phenytoin Sodium (Dilantin) 200 mg PO DAILY@1230 [facility] Last Admin: 06/06/17 12:36 Dose: 200 mg Phenytoin Sodium (Dilantin) 300 mg PO BID [facility] Last Admin: 06/06/17 08:10 Dose: 300 mg Fluticasone/Salmeterol (Advair Diskus 500/50) 1 puff IH Q12 [facility] Last Admin: 06/06/17 08:08 Dose: 1 puff Tiotropium [place] (Spiriva) 18 mcg IH DAILY [facility] Last Admin: 06/06/17 08:09 Dose: 18 mcg Venlafaxine HCl (Effexor) 75 mg PO DAILY [facility] Last Admin: 06/06/17 08:10 Dose: 75 mg - Labs Labs: 06/03/17 06:45 06/03/17 06:45 - Constitutional Appears: No Acute Distress, Chronically Ill - Head Exam Head Exam: NORMAL INSPECTION - Eye Exam Eye Exam: PERRL - ENT Exam ENT Exam: Normal Exam - Neck Exam Neck Exam: Normal Inspection - Respiratory Exam Respiratory Exam: Decreased Breath Sounds (at bases) - Cardiovascular Exam Cardiovascular Exam: REGULAR RHYTHM - GI/Abdominal Exam GI & Abdominal Exam: Soft, Normal Bowel Sounds. absent: Guarding, Rebound - Extremities Exam Extremities Exam: Normal Inspection - Back Exam Back Exam: NORMAL INSPECTION - Neurological Exam Neurological Exam: Alert, Oriented x3 Additional comments: no focal motor/sensory deficit - Psychiatric Exam Psychiatric exam: Normal Mood - Skin Skin Exam: Normal Color, Warm Assessment and Plan (1) UTI (urinary tract infection) Status: Acute (2) S/P D&C (status post dilation and curettage) Status: Acute (3) Seizure Status: Chronic (4) COPD (chronic obstructive pulmonary disease) Status: Chronic (5) History of depression Status: Chronic (6) Morbid obesity with BMI of 40.0-44.9, adult Status: Chronic - Assessment and Plan (Free Text) Plan: Repeat U/A, U C-S, continue Cipro IV and rest of Tx , plans for DD in am
[2017-06-07] MEDS: Ciprofloxacin 400mg/200ml D5W 400 MG/200 ML BAG IVPB SCH ×2 (05:13→16:41)
[2017-06-07] MEDS: Albuterol-Ipratrop 3 mg / 0.5 (3 ml) UD IH SCH ×2 (07:18→14:04)
[2017-06-07] MEDS: Pantoprazole 40 mg EC Tab PO SCH ×2 (08:06→16:42)
[2017-06-07] MEDS: Digoxin 250 mcg (0.25 mg) Tab PO SCH (08:07)
[2017-06-07] MEDS: Tiotropium 18 mcg Cap For Inhalation IH SCH (08:08)
[2017-06-07] MEDS: Fluticasone-Salmeterol 500-50mcg Diskus IH SCH (08:08)
[2017-06-07 08:12] VITALS: PULSE 63
[2017-06-07 09:11] VITALS: O2SAT 93
--- NOTE | 2017-06-07 12:26 | CP.PCM.DIS ---
Provider - Provider Date of Admission: 06/02/17 15:00 Attending physician: Kana Velarde MD Diagnosis - Discharge Diagnosis (1) UTI (urinary tract infection) Status: Acute Priority: High (2) S/P D&C (status post dilation and curettage) Status: Acute Priority: High (3) Seizure Status: Chronic Priority: High (4) COPD (chronic obstructive pulmonary disease) Status: Chronic Priority: Medium (5) History of depression Status: Chronic Priority: Medium (6) Morbid obesity with BMI of 40.0-44.9, adult Status: Chronic Priority: High Hospital Course - Lab Results Lab Results: Micro Results 06/06/17 08:39 Urine,Clean Catch Urine Culture - Final No Growth (<1,000 CFU/ML) Most Recent Lab Values WBC 6.7 K/uL (4.8-10.8) 06/03/17 06:45 RBC 4.74 Mil/uL (3.80-5.20) 06/03/17 06:45 Hgb 13.7 g/dL (12.0-16.0) 06/03/17 06:45 Hct 41.1 % (34.0-47.0) 06/03/17 06:45 MCV 86.7 fl (81.0-99.0) D 06/03/17 06:45 MCH 29.0 pg (27.0-31.0) 06/03/17 06:45 MCHC 33.4 g/dL (33.0-37.0) 06/03/17 06:45 RDW 14.1 % (11.5-14.5) 06/03/17 06:45 Plt Count 146 K/uL (130-400) 06/03/17 06:45 Sodium 143 mmol/l (132-148) 06/03/17 06:45 Potassium 3.9 MMOL/L (3.6-5.0) 06/03/17 06:45 Chloride 97 mmol/L (98-107) L 06/03/17 06:45 Carbon Dioxide 30 mmol/L (22-30) 06/03/17 06:45 Anion Gap 20 (10-20) 06/03/17 06:45 BUN 14 mg/dl (7-17) 06/03/17 06:45 Creatinine 0.9 mg/dl (0.7-1.2) 06/03/17 06:45 Est GFR ( Amer) > 60 06/03/17 06:45 Est GFR (Non-Af Amer) > 60 06/03/17 06:45 Random Glucose 119 mg/dL (65-105) H 06/03/17 06:45 Calcium 8.8 mg/dL (8.4-10.2) 06/03/17 06:45 Urine Color Yellow (YELLOW) 06/06/17 08:39 Urine Clarity Slighty-cloudy (Clear) 06/06/17 08:39 Urine pH 6.0 (5.0-8.0) 06/06/17 08:39 Ur Specific [place] 1.006 (1.003-1.030) 06/06/17 08:39 Urine Protein Negative mg/dL (NEGATIVE) 06/06/17 08:39 Urine Glucose (UA) Neg mg/dL (Normal) 06/06/17 08:39 Urine Ketones Negative mg/dL (NEGATIVE) 06/06/17 08:39 Urine Blood Moderate (NEGATIVE) 06/06/17 08:39 Urine Nitrate Negative (NEGATIVE) 06/06/17 08:39 Urine Bilirubin Negative (NEGATIVE) 06/06/17 08:39 Urine Urobilinogen 0.2-1.0 mg/dL (0.2-1.0) 06/06/17 08:39 Ur Leukocyte Esterase Trace Job/uL (Negative) 06/06/17 08:39 Urine RBC (Auto) 7 /hpf (0-3) H 06/06/17 08:39 Urine Microscopic WBC 5 /hpf (0-5) 06/06/17 08:39 Ur Squamous Epith Cells 3 /hpf (0-5) 06/06/17 08:39 Urine Bacteria Rare (<OCC) 06/06/17 08:39 Digoxin 0.9 ng/mL (0.8-2.0) 06/03/17 06:45 Discharge Exam - Head Exam Head Exam: NORMAL INSPECTION Discharge Plan - Follow Up Plan Condition: GOOD Disposition: HOME/ ROUTINE
[2017-06-07 15:57] VITALS: BP 101/59; PULSE 71; TEMP 97.9
== END 2017-06-07 18:50 | disposition home or self-care (01) | DRG 320 ==
LOC: H.TCU 15:00
PROVIDERS: ADMIT Internal Medicine Pulmonary Disease; ATTEND Internal Medicine Pulmonary Disease
PROC: F07Z9FZ Gait Training/Functional Ambulation Treatment using Assistive, Adaptive, Supportive or Protective Equipment (ICD-10-PCS; principal; 2017-06-02)
PROC: F07Z8FZ Transfer Training Treatment using Assistive, Adaptive, Supportive or Protective Equipment (ICD-10-PCS; 2017-06-02)
PROC: F07Z5ZZ Bed Mobility Treatment (ICD-10-PCS; 2017-06-02)
PROC: F07L6ZZ Therapeutic Exercise Treatment of Musculoskeletal System - Lower Back / Lower Extremity (ICD-10-PCS; 2017-06-02)
DX: N39.0 Urinary tract infection, site not specified (principal); J44.9 Chronic obstructive pulmonary disease, unspecified; E66.01 Morbid (severe) obesity due to excess calories; Z68.41 Body mass index [BMI] 40.0-44.9, adult; Z87.891 Personal history of nicotine dependence; F32.9 Major depressive disorder, single episode, unspecified; G40.909 Epilepsy, unspecified, not intractable, without status epilepticus